=== PATIENT | female | born 2005 | race Caucasian/White ===

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

== ENCOUNTER → 2025-03-01 | Outpatient (CLI) | payer MEDICAID, SELFPAY ==
--- NOTE | 2025-03-01 13:22 | RAD_ITS ---
PROCEDURE: CHEST PA AND LATERAL 03/01/2025 REASON FOR EXAM: COUGH TECHNIQUE: Procedure Code: RADCXR Modality: DX Procedure: CHEST PA AND LATERAL COMPARISON: None FINDINGS: The heart mediastinum are normal. The lungs are clear. There is no focal consolidation or effusion. No pneumothorax. No soft tissue abnormality. Osseous structures are normal. RAD/Chest PA and Lateral IMPRESSION: Negative chest Reading Location: [id number]
--- OUTSIDE RECORDS SUMMARY | 2025-03-01 13:44 | XMS RPT_ITS | CCD ---
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 O92.79 Care and examination of lactating mother Z39.1 Time Spent (min) 30 03/21/24 1043 Date Anahy Schilling NP MACHINE SOLE LEVELER-C Alexigner Signature: Date (if applicable) CC: Normal [facility] Discharge Instructionon 11-0 Discharge Instruction [facility] Medical Records Department [address] [place] [address] Instructions for Home/Discharge Instructions 03/19/24 0837 MR#: [id number] Acct: [id number] Name: LIN ACEVEDO Rep #: [id number] : 2005 18 From: Dave Pyle DO PCP: Dr. Hermelinda Bauman MD Status:ADM IN Discharge Instructions Diet Discharge Diet: No restrictions Activity Discharge Activity: May Drive and May Shower May resume sexual activity in: 6 weeks (nothing in the vagina for 6 weeks) Ice area for (Minutes): 15 Weight Bearing Status: Weight bearing as tolerated Lifting Restrictions: nothing heavier than baby Additional Activity Instructions:: Check your blood pressure before taking the Procardia (blood pressure medication), and later in the day after you have taken the medication. Keep a log of your blood pressures. To come in this week for a blood pressure check. Call the office if your blood pressures are increasing and 150's/100's. Dressing / Incision Call your doctor if you observe: Fever of 101 or Higher, Inability to urinate, Using more than 1 pad per hour, Shortness of breath, Dizziness, Fainting spells, Swelling in the ankles, Chest pain, Increased palpitations (irregular heartbeat), Calf discomfort and Uncontrolled pain Cleanse incision/area with: Soap Water Follow Up Care Please Follow Up With: Lorena Bassett CNM When: 1 week for early visit and blood pressure check 6 weeks for exam Test Results: Test results from this visit will be discussed in further detail at your follow-up appointment, if applicable. Discharge Plan Admission Admit Date/Time: 03/16/24 05:29 Primary Reason for Your Visit: Delivery Attending Provider: Day You Primary Care Provider: Hermelinda Bauman Instructions Patient Instructions: After a Vaginal Discharge Orders/Prescriptions Prescriptions: New nifedipine 30 mg Tablet Extended Release 24hr 30 mg PO DAILY Qty: 30 1RF Referrals / Follow Up: Hermelinda Bauman MD [Primary Care Provider] - Disposition Disposition (needs filled in before D/C Order can be placed): Home, Self Care 03/19/24 0838 Dave Pyle DO CC: Dr. Hermelinda Bamuan MD Signed Normal [facility] CBC W/Diff, Automatedon 11-0 Absolute Lymph 2.77 X10 3/uL Normal 0.83-4.51 [facility] Comment on above: Order Comment: SENT LABEL TO WP REMINDING THEM OF OUTSTANDING DRAW Comments: First day Performed By: #### L 100.0100 #### [facility] [address] [place], [address] Absolute Neut 8.7 X10 3/uL High 2.0-7.7 [facility] Comment on above: Order Comment: SENT LABEL TO WP REMINDING THEM OF OUTSTANDING DRAW Comments: First day Performed By: #### L 100.0100 #### [facility] [address] [place], [address] Basophils/100 WBC (Bld) 0.8 % Normal 0-1 [facility] Comment on above: Order Comment: SENT LABEL TO WP REMINDING THEM OF OUTSTANDING DRAW Comments: First day Performed By: #### L 100.0100 #### [facility] [address] [place], [address] Eosinophils/100 WBC (Bld) 3.0 % Normal 0-3 [facility] Comment on above: Order Comment: SENT LABEL TO WP REMINDING THEM OF OUTSTANDING DRAW Comments: First day Performed By: #### L 100.0100 #### [facility] [address] [place], [address] Erythrocyte distribution width (RBC) [Ratio] 12.6 % Normal 11.6-14.6 [facility] Comment on above: Order Comment: SENT LABEL TO WP REMINDING THEM OF OUTSTANDING DRAW Comments: First day Performed By: #### L 100.0100 #### [facility] [address] [place], [address] Hematocrit (Bld) [Volume fraction] 29.6 % Low 37-46 [facility] Comment on above: Order Comment: SENT LABEL TO WP REMINDING THEM OF OUTSTANDING DRAW Comments: First day Performed By: #### L 100.0100 #### [facility] [address] [place], [address] Hemoglobin (Bld) [Mass/Vol] 9.8 g/dL Low 12.0-15.0 [facility] Comment on above: Order Comment: SENT LABEL TO WP REMINDING THEM OF OUTSTANDING DRAW Comments: First day Performed By: #### L 100.0100 #### [facility] [address] [place], [address] IG% 3.100 High 0.0-0.9 [facility] Comment on above: Order Comment: SENT LABEL TO WP REMINDING THEM OF OUTSTANDING DRAW Comments: First day Result Comment: IG% - Immature Granulocytes (promyelocytes, myelocytes and metamyelocytes) > 1% indicates that a LEFT SHIFT is Present. Performed By: #### L 100.0100 #### [facility] [address] [place], [address] Lymphocytes/100 WBC (Bld) 20.8 % Low 25-45 [facility] Comment on above: Order Comment: SENT LABEL TO WP REMINDING THEM OF OUTSTANDING DRAW Comments: First day Performed By: #### L 100.0100 #### [facility] [address] [place], [address] MCH (RBC) [Entitic mass] 29.1 pg Normal 25.0-35.0 [facility] Comment on above: Order Comment: SENT LABEL TO WP REMINDING THEM OF OUTSTANDING DRAW Comments: First day Performed By: #### L 100.0100 #### [facility] [address] [place], [address] MCHC (RBC) [Mass/Vol] 33.1 g/dL Normal 32-36 [facility] Comment on above: Order Comment: SENT LABEL TO WP REMINDING THEM OF OUTSTANDING DRAW Comments: First day Performed By: #### L 100.0100 #### [facility] [address] [place], [address] MCV (RBC) [Entitic vol] 87.8 fL Normal 78-96 [facility] Comment on above: Order Comment: SENT LABEL TO WP REMINDING THEM OF OUTSTANDING DRAW Comments: First day Performed By: #### L 100.0100 #### [facility] [address] [place], [address] Monocytes/100 WBC (Bld) 6.7 % High 3-6 [facility] Comment on above: Order Comment: SENT LABEL TO WP REMINDING THEM OF OUTSTANDING DRAW Comments: First day Performed By: #### L 100.0100 #### [facility] [address] [place], [address] Neutrophils/100 WBC (Bld) 65.6 % High 34-64 [facility] Comment on above: Order Comment: SENT LABEL TO WP REMINDING THEM OF OUTSTANDING DRAW Comments: First day Performed By: #### L 100.0100 #### [facility] [address] [place], [address] Nucleated RBC (Bld) [#/Vol] 0 10*3/uL Normal 0-5 [facility] Comment on above: Order Comment: SENT LABEL TO WP REMINDING THEM OF OUTSTANDING DRAW Comments: First day Performed By: #### L 100.0100 #### [facility] [address] [place], [address] Platelet mean volume (Bld) [Entitic vol] 11.7 fL Normal 6.2-12.0 [facility] Comment on above: Order Comment: SENT LABEL TO WP REMINDING THEM OF OUTSTANDING DRAW Comments: First day Performed By: #### L 100.0100 #### [facility] [address] [place], [address] Platelets (Bld) [#/Vol] 153 10*3/uL Normal 150-450 [facility] Comment on above: Order Comment: SENT LABEL TO WP REMINDING THEM OF OUTSTANDING DRAW Comments: First day Performed By: #### L 100.0100 #### [facility] [address] [place], [address] RBC (Bld) [#/Vol] 3.37 10*6/uL Low 4.1-4.8 [facility] Comment on above: Order Comment: SENT LABEL TO WP REMINDING THEM OF OUTSTANDING DRAW Comments: First day Performed By: #### L 100.0100 #### [facility] [address] [place], [address] RDW SD 40.3 fl Normal 35.1-43.9 [facility] Comment on above: Order Comment: SENT LABEL TO WP REMINDING THEM OF OUTSTANDING DRAW Comments: First day Performed By: #### L 100.0100 #### [facility] [address] [place], [address] WBC (Bld) [#/Vol] 13.3 10*3/uL High 4.5-13.0 [facility] Comment on above: Order Comment: SENT LABEL TO WP REMINDING THEM OF OUTSTANDING DRAW Comments: First day Performed By: #### L 100.0100 #### [facility] [address] [place], [address] (ROM) Rupture Of Membraneson 03-16-2024 ROM Positive Abnormal Negative [facility] Comment on above: Result Comment: Amni otic fluid present indicates rupture of Membranes. RESULTS CALLED TO [facility] 03/16/24 0522 Raphael Manuel. REPORT READ BACK BY SAME. Performed By: #### L 205.1000 ####[facility] [address] [place], [address] CBC W/Diff, Automatedon Absolute Lymph 2.57 X10 3/uL Normal 0.83-4.51 [facility] Comment on above: Performed By: #### B TS, L100.0100 #### [facility] [address] [place], [address] Absolute Neut 13.1 X10 3/uL High 2.0-7.7 [facility] Comment on above: Performed By: #### B ASHA, L100.0100 #### [facility] [address] [place], [address] Basophils/100 WBC (Bld) 0.6 % Normal 0-1 [facility] Comment on above: Performed By: #### B ASHA, L100.0100 #### [facility] [address] [place], [address] Eosinophils/100 WBC (Bld) 2.1 % Normal 0-3 [facility] Comment on above: Performed By: #### B ASHA, L100.0100 #### [facility] [address] [place], [address] Erythrocyte distribution width (RBC) [Ratio] 12.1 % Normal 11.6-14.6 [facility] Comment on above: Performed By: #### Augusto BARRY, L100.0100 #### [facility] [address] [place], [address] Hematocrit (Bld) [Volume fraction] 35.3 % Low 37-46 [facility] Comment on above: Performed By: #### Augusto BARRY, L100.0100 #### [facility] [address] [place], [address] Hemoglobin (Bld) [Mass/Vol] 11.6 g/dL Low 12.0-15.0 [facility] Comment on above: Performed By: #### B ASHA, L100.0100 #### [facility] [address] [place], [address] IG% 3.400 High 0.0-0.9 [facility] Comment on above: Result Comment: IG% - Immature Granulocytes (promyelocytes, myelocytes and metamyelocytes) > 1% indicates that a LEFT SHIFT is Present. Performed By: #### Augusto BARRY, L100.0100 #### [facility] [address] [place], [address] Lymphocytes/100 WBC (Bld) 14.2 % Low 25-45 [facility] Comment on above: Performed By: #### Augusto BARRY, L100.0100 #### [facility] [address] [place], [address] MCH (RBC) [Entitic mass] 28.6 pg Normal 25.0-35.0 [facility] Comment on above: Performed By: #### Augusto BARRY, L100.0100 #### [facility] [address] [place], [address] MCHC (RBC) [Mass/Vol] 32.9 g/dL Normal 32-36 [facility] Comment on above: Performed By: #### Augusto BARRY, L100.0100 #### [facility] [address] [place], [address] MCV (RBC) [Entitic vol] 86.9 fL Normal 78-96 [facility] Comment on above: Performed By: #### Augusto BARRY, L100.0100 #### [facility] [address] [place], [address] Monocytes/100 WBC (Bld) 7.8 % High 3-6 [facility] Comment on above: Performed By: #### Augusto BARRY, L100.0100 #### [facility] [address] [place], [address] Neutrophils/100 WBC (Bld) 71.9 % High 34-64 [facility] Comment on above: Performed By: #### Augusto BRARY, L100.0100 #### [facility] [address] [place], [address] Nucleated RBC (Bld) [#/Vol] 0 10*3/uL Normal 0-5 [facility] Comment on above: Performed By: #### Augusto BARRY, L100.0100 #### [facility] [address] [place], [address] Platelet mean volume (Bld) [Entitic vol] 12.4 fL High 6.2-12.0 [facility] Comment on above: Performed By: #### Augusto BARRY, L100.0100 #### [facility] [address] [place], [address] Platelets (Bld) [#/Vol] 206 10*3/uL Normal 150-450 [facility] Comment on above: Performed By: #### Augusto BARRY, L100.0100 #### [facility] [address] [place], [address] RBC (Bld) [#/Vol] 4.06 10*6/uL Low 4.1-4.8 [facility] Comment on above: Performed By: #### Augusto BARRY, L100.0100 #### [facility] [address] [place], [address] RDW SD 38.5 fl Normal 35.1-43.9 [facility] Comment on above: Performed By: #### Augusto BARRY, L100.0100 #### [facility] [address] [place], [address] WBC (Bld) [#/Vol] 18.2 10*3/uL High 4.5-13.0 [facility] Comment on above: Performed By: #### Augusto BARRY, L100.0100 #### [facility] [address] [place], [address] H AND P Exam - OB/GYNon -0 H&P Exam - SPRING [employer]GER [facility] Medical Records Department [address] [address] H P Exam - SPRING [employer]GER 03/16/24 0642 MR#: [id number] Acct: [id number] Name: LIN ACEVEDO Rep #: [id number] : 2005 18 From: Day You CNM PCP: Dr. Hermelinda Bauman MD Status:ADM IN Location: [id number] HPI - General General Date of Admission: 03/16/24 HPI Narrative LIN ACEVEDO, is a 18 F G1 who presents with leaking fluid and cramping. Maternal Data Information ANNABEL Calculator Estimated Delivery Date Method Current WG Current Estimate 03/17/24 Manual 39w 6d PFSH PFSH Medical History Depression Allergy/AdvReac Type Severity Reaction Status Date / Time No Known Allergies Allergy Verified 03/16/24 04:56 Social History Smoking Status: Former smoker History Elective abortions Hx Para 0 Spontaneous abortions Hx # Term Pregnancies Ectopic pregnancies Hx # Pregnancies Multiple births # of living children NST FHR Rate Baby A Baseline: 140 Variability:: Moderate Accelerations:: 15 x 15 Decelerations:: None NST Reactive:: Yes FHR Category:: Category I Uterine Activity:: Irregular ROS Eyes Eyes: Denies blurry vision, change in vision or spots in vision ENT HEENT: Denies dizziness or headache(s) Cardiovascular Cardiovascular: Denies abdominal pain, chest pain or dyspnea Respiratory/Chest Respiratory/Chest: Denies cough, dyspnea, shortness of breath at rest or shortness of breath with exertion Gastrointestinal Gastrointestinal: Denies abdominal pain, diarrhea or vomiting Genitourinary Genitourinary: Denies change in urinary stream, difficulty urinating or dysuria Musculoskeletal Musculoskeletal: Reports none Integumentary Integumentary: Denies rash Neurologic Neurologic: Denies dizziness, headache(s), memory loss or weakness Psychiatric Psychiatric: Reports none Vital Signs Vital Signs Vital Signs: 03/16/24 04:45 03/16/24 04:45 03/16/24 04:45 Temperature Temperature Source Temporal Pulse Rate 91 Respiratory Rate Blood Pressure 137/86 H BP Systolic 137 BP Diastolic 86 03/16/24 04:45 03/16/24 04:45 03/16/24 06:33 Temperature 97.4 F L Temperature Source Pulse Rate Respiratory Rate 16 Blood Pressure 130/81 BP Systolic 130 BP Diastolic 81 03/16/24 06:33 Temperature Temperature Source Pulse Rate 86 Respiratory Rate Blood Pressure BP Systolic BP Diastolic Weight Weight: 195 lb 8.8 oz Body Mass Index (BMI) 35.7 Physical Exam Const alert, oriented x3 and no apparent distress General Appearance: cooperative Orientation / Consciousness: awake Exam Limitations: no limitations HEENT normocephalic Head and Scalp: normal to inspection Eyes General Eye: normal appearance of both eyes Neck full ROM and no lymphadenopathy Lymph Lymphatic: no lymphadenopathy noted Chest inspection of chest normal Resp normal respiratory effort, normal air movement and clear to auscultation bilaterally Effort and Inspection: able to speak in complete sentences and symmetric chest movement Cardio regular rate and regular rhythm GI normal to inspection, nondistended, normoactive bowel sounds Manual OB Exam: presentation cephalic Back/Spine normal ROM Extremity full ROM and no calf tenderness Skin no rashes or lesions noted General Skin Exam: no breakdown Neuro oriented x3 and CN's II-XII intact bilaterally Psych mental status grossly normal and thought process normal Labs Labs Labs: Blood Type O POSITIVE Antibody Screen NEGATIVE Hct 35.3 % (37-46) L Hgb 11.6 g/dL (12.0-15.0) L Syphilis Total Ab Pending Hepatitis C Antibody Pending GBS negative Assessment Plan (1) Spontaneous rupture of amniotic membranes: (2) 39 weeks gestation of : PLAN: Plan ROM plus positive CE /-2 Admit to labor and delivery Routine labs Ambulate and use birthing ball as needed Desires unmedicated labor If no change at next check patient is willing to discuss starting Pitocin Dr. Pyle notified of admission 03/16/24 0742 Cosigner Signature (if applicable): CC: CHRISS You; Dr. Hermelinda Bauman MD Signed Normal [facility] Hepatitis C Antibodyon 03-16 Hepatitis C AB Non-Reactive Normal Nonreactive [facility] Comment on above: Result Comment: Non Reactive: < 0.8 Equivocal: >/= 0.8 to < 1.0 Reactive: >/= 1.0 The CDC requires that a reactive/equivocal HCV antibody result be sent out for confirmation. HCV Quant by PCR testing. Performed By: #### L 3890.6300 #### [facility] [place], [address] L509.8000on 03-16-2024 Syphilis Abs Non-Reactive Normal [facility] Comment on above: Performed By: #### L 509.8000 #### [facility] [address] [place], [place], [address] MR/OB.VAGDELIon 03-16-2024 MR/OB.VAGDELI [facility] Medical Records Department [address] [place] [address] OB VAGINAL DELIVERY 03/16/24 2233 MR#: [id number] Acct: [id number] Name: LIN ACEVEDO Rep #: [id number] : 2005 18 From: Lorena Bassett CNM PCP: Dr. Hermelinda Bauman MD Status:ADM IN Location: [id number] Assessment Plan (1) Lactating mother: (2) First degree perineal laceration: (3) Vaginal delivery: Maternal Data Information ANNABEL Calculator Estimated Delivery Date Method Current WG Current Estimate 03/17/24 Manual 39w 6d Vaginal Delivery Maternal Presentation Maternal Presentation: Active Labor and Spontaneous Rupture of Membranes (Augmentation with pitocin) Vaginal Delivery Information Procedure Performed: Spontaneous Vaginal Delivery Date of Procedure: 03/16/24 Pre-Procedure Diagnosis: SROM, active labor Post-Procedure Diagnosis: , first degree perineal laceration Type of anesthesia: Epidural Estimated Blood Loss: 400 ml Time of Delivery: 22:12 Findings Description of procedure: Progressed to complete with urge to push. Epidural for pain management. of viable female over intact perineum. APGARS 8,9 respectively. Infant head delivered with body immediately forthcoming. Placed on maternal abdomen, strong cry. Mouth and nares suctioned for secretions. Pitocin started for active 3rd stage management. Cord doubly clamped and cut by FOB after pulsations ceased, delayed cord clamping. Placenta delivered intact via durham, 3 vessel cord intact. Perineum inspected and revealed first degree perineal laceration. Repaired with 3.0 vicryl rapide and epidural. Fundus firm and hemostasis achieved. EBL 400ml. Mom and baby stable, planning to breastfeed. Family bonding well. notified of delivery. Presentation: Vertex and FELISHA Amniotic Membrane Rupture Type: Spontaneous Amniotic Fluid Description: Clear Placental Delivery Description: Spontaneous Placenta Disposition: [facility] Cord Vessel Description: 3 Vessels Cord Entanglement: None Infant A Gender: Female (1 minute): 8 (5 minute): 9 Delayed Cord Clamping: Yes Post Vaginal Deli Medications given after delivery: IV Pitocin Episiotomy Description: None Laceration: Perineal Extension/lac and 1st degree Complication Complications: No 03/16/242236 Cosigner Signature (if applicable): CC: CHRISS You; CHRISS Bassett; Dr. Hermelinda Bauman MD Signed Normal [facility] Type AND Screenon 03-16-2024 ABO and Rh group Nom (Bld) Blood group O Rh(D) positive Normal [facility] Comment on above: Order Comment: Labor Performed By: #### B TS, L100.0100 #### [facility] [address] [place], [address] URINE OB DIP B/Oon Glucose Ql (U) Negative Neg mg/dL [facility] Interpretation and review of laboratory results Normal [facility] Protein.monoclonal (U) [Mass/Vol] Negative Neg mg/dL [facility] CNPNon 03-09-2024 CNPN Telephone (OBGYWM) LIN ACEVEDO ([id number]) 5 F Date Time Provider Department 03/09/24 DAY YOU OBPRIYANK During your visit today, we recorded the following information about you: Day You APRN.CNM 03/09/2024 4:20 PM Signed Please reach out to patient as she missed her appointment today and is currently 38.6 weeks gestation. MABEL Grullon Jennifer, RN 03/09/2024 4:25 PM Signed Left message for patient to call office to offer appointment. She rescheduled for 03/16 and she was last seen 02/19. SW has openings on Tuesday, 03/12. AMADEO Briceño Lindsey, RN 03/09/2024 4:35 PM Signed Patient called and appointment rescheduled for 03/12. Maria Dolores Ascencio RN Allergies As of Date: 03/09/2024 (No Known Allergies) Date Reviewed: 02/20/2024 Reviewed by: Davian Umaña MA - Fully Assessed Reason for Visit: Appointment [186] Prescriptions as of 03/09/2024 - 25-IRON AOF-ELJAL-RBC ORAL Take by mouth. Problem List As Of Date 03/09/2024 Noted Resolved Depressive disorder [F32.A] 04/02/2021 with care elsewhere in third*01/19/2024 Encounter for supervision of high risk pregnanc*01/19/2024 Polyhydramnios in third trimester [O40.3XX0] 01/27/2024 Encounter Status:Closed by MARIA DOLORES ASCENCIO on 03/09/24 Normal [facility] Examination level ultrasound on 02-24-2024 [facility] Radiology Study observation (narrative) [facility] ROUTINE, GROUP B ST REP PCRon 02-20-2024 ROUTINE, GROUP B STREP PCR GROUP B STREP PCR: Negative for Group B Streptococcus by PCR. Normal [facility] Comment on above: Performed By: #### G BPCR ####[facility] LAB[facility] [id number] [place] [address] [place] URINE OB DIP B/Oon 4 Glucose Ql (U) Negative Neg mg/dL [facility] Protein.monoclonal (U) [Mass/Vol] Negative Neg mg/dL [facility] URINE OB DIP B/Oon 4 Glucose Ql (U) Negative Neg mg/dL [facility] Interpretation and review of laboratory results Normal [facility] Protein.monoclonal (U) [Mass/Vol] Negative Neg mg/dL [facility] CNPNon 01-30-2024 CNPN Telephone (OBGYWM) LIN ACEVEDO ([id number]) 5 F Date Time Provider Department 01/30/24 ROSSANA FELIX OBPRIYANK During your visit today, we recorded the following information about you: Torrey Prince RN 01/30/2024 4:33 PM Signed Pt has new OB appt with DM on 02/01/24. Records received from Dr. Busch's office 01/30/24. Records need scanned in chart after review by DM. Placed records with chart prep for appt on 02/01/2024. Torrey Prince RN Allergies As of Date: 01/30/2024 (No Known Allergies) Date Reviewed: 01/24/2024 Reviewed by: Whitney Dejesus MD - Fully Assessed Prescriptions as of 01/30/2024 - 25-IRON WJI-OVEKO-GSI ORAL Take by mouth. Problem List As Of Date 01/30/2024 Noted Resolved Depressive disorder [F32.A] 04/02/2021 with care elsewhere in third*01/19/2024 Encounter for supervision of high risk pregnanc*01/19/2024 Polyhydramnios in third trimester [O40.3XX0] 01/27/2024 Encounter Status:Closed by TORREY PRINCE on 01/30/[address] [facility] Telephone (OBGYWM) LIN ACEVEDO ([id number]) 5 F Date Time Provider Department 01/30/24 ROSSANA FELIX OBGYWM During your visit today, we recorded the following information about you: Eliana Camarena RN 01/30/2024 12:00 PM Signed ----- Message from Rossana Story MD sent at 01/27/2024 4:42 PM EDT ----- Mild polyhydramnios- will need growth us in 4 weeks. Results reviewed. Please Place copy in OB chart Eliana Camarena RN 01/30/2024 12:01 PM Signed Patient did not read the Timeethart result not message. Left message for patient to call office. AMADEO Soto Lindsey, RN 01/30/2024 12:23 PM Signed Patient called and growth ultrasound scheduled. Maria Dolores Ascencio RN Allergies As of Date: 01/30/2024 (No Known Allergies) Date Reviewed: 01/24/2024 Reviewed by: Whitney Dejesus MD - Fully Assessed Reason for Visit: Results [95] Prescriptions as of 01/30/2024 - 25-IRON JFX-[id number]-YVK ORAL Take by mouth. Problem List As Of Date 01/30/2024 Noted Resolved Depressive disorder [F32.A] 04/02/2021 with care elsewhere in third*01/19/2024 Encounter for supervision of high risk pregnanc*01/19/2024 Polyhydramnios in third trimester [O40.3XX0] 01/27/2024 Encounter Status:Closed by MARIA DOLORES ASCENCIO on 01/30/24 Normal [facility] CBC panel Auto (Bld)on 01-26 Erythrocyte distribution width (RBC) [Ratio] 11.5 % Normal 11.5-15.0 [facility] Comment on above: Order Comment: Speci men Type: BLOOD SPECIMENOrdering Facility: [facility] Address: [address] [place], [place] [id number] Performed By: #### 5 8410-2 ####[facility] ELIER LIFEPOINT HEALTHKimberlee [id number] [place] [address] [place] Hematocrit (Bld) [Volume fraction] 36.5 % Normal 36.0-46.0 [facility] Comment on above: Order Comment: Speci men Type: BLOOD SPECIMENOrdering Facility: [facility] Address: [address] [place] [address] Performed By: #### 5 8410-2 ####[facility] PEDRO PABLOSALEMATA [id number] [place] [address] [place] Hemoglobin (Bld) [Mass/Vol] 12.3 g/dL Normal 11.5-15.5 [facility] Comment on above: Order Comment: Speci men Type: BLOOD SPECIMENOrdering Facility: [facility] Address: [address] [place] [address] Performed By: #### 5 8410-2 ####[facility]ITAL[facility] [id number] [place] [address] [place] MCH (RBC) [Entitic mass] 29.9 pg Normal 26.0-34.0 [facility] Comment on above: Order Comment: Speci men Type: BLOOD SPECIMENOrdering Facility: [facility] Address: [address] [place] [address] Performed By: #### 5 8410-2 ####[facility] ERA [id number] [address] [place] MCHC (RBC) [Mass/Vol] 33.7 g/dL Normal 30.5-36.0 [facility] Comment on above: Order Comment: Speci men Type: BLOOD SPECIMENOrdering Facility: [facility] Address: [address] [place] [address] Performed By: #### 5 8410-2 ####[facility]ITALNCS[facility] [id number] [address] [place] MCV (RBC) [Entitic vol] 88.6 fL Normal 80.0-100.0 [facility] Comment on above: Order Comment: Speci men Type: BLOOD SPECIMENOrdering Facility: [facility] Address: [address] [place] [address] Performed By: #### 5 8410-2 ####[facility] PEDRO PABLOMORENO [id number] [place] [address] [place] Nucleated RBC (Bld) [#/Vol] 10*3/uL Normal <0.01 [facility] Comment on above: Order Comment: Speci men Type: BLOOD SPECIMENOrdering Facility: [facility] Address: [address] [place] [address] Performed By: #### 5 8410-2 ####[facility] PEDRO PABLOSALEMATA [id number] [place] [address] [place] Platelet mean volume (Bld) [Entitic vol] 10.8 fL Normal 9.0-12.7 [facility] Comment on above: Order Comment: Speci men Type: BLOOD SPECIMENOrdering Facility: [facility] Address: [address] [place] [address] Performed By: #### 5 8410-2 ####[facility]OS[facility]ITALCHRISTAKimberlee [id number] [place] [address] [place] Platelets (Bld) [#/Vol] 210 10*3/uL Normal 150-400 [facility] Comment on above: Order Comment: Speci men Type: BLOOD SPECIMENOrdering Facility: [facility] Address: [address] [place] [address] Performed By: #### 5 8410-2 ####[facility] HOSPITALCHRISTALIA [id number] [place] [address] [place] RBC (Bld) [#/Vol] 4.12 10*6/uL Normal 3.90-5.20 [facility] Comment on above: Order Comment: Speci men Type: BLOOD SPECIMENOrdering Facility: [facility] Address: [address] [place] [address] Performed By: #### 5 8410-2 ####[facility] MEMORIALWNCLIA [id number] [place] [address] [place] WBC (Bld) [#/Vol] 16.36 10*3/uL High 3.70-11.00 [facility] Comment on above: Order Comment: Speci men Type: BLOOD SPECIMENOrdering Facility: [facility] Address: [facility] [place] [address] Performed By: #### 5 8410-2 ####[facility]OS[facility]ITALNCLIA [id number] [address] [place] CNPJudit 01-27-2024 CNPN Telephone (OBGYWM) LIN ACEVEDO ([id number]) 5 F Date Time Provider Department 01/27/24 ROSSANA FELIX OBGYWM During your visit today, we recorded the following information about you: Eliana Camarena RN 01/27/2024 4:48 PM Signed ----- Message from Rossana Story MD sent at 01/27/2024 4:42 PM EDT ----- Mild polyhydramnios- will need growth us in 4 weeks. Results reviewed. Please Place copy in OB chart Eliana Camarena RN 01/27/2024 4:50 PM Signed Please file u/s order. AMADEO Soto Deidre, MD 01/27/2024 4:58 PM Signed ordered Eliana Camarena RN 01/27/2024 5:01 PM Signed Result note mychart message sent. Will verify she views. Eliana Camarena RN Allergies As of Date: 01/27/2024 (No Known Allergies) Date Reviewed: 01/24/2024 Reviewed by: Whitney Dejesus MD - Fully Assessed Reason for Visit: Results [95] Primary Visit Diagnosis:Polyhydram nios in third trimester complication, single or unspecified fetus [O40.3XX0] Order(s):OBSTETRIC ULTRASOUND [facility] [[id number]] Order #: [id number]: 1 FUTURE Prescriptions as of 01/27/2024 - 25-IRON QLI-IWSPP-DWE ORAL Take by mouth. Problem List As Of Date 01/27/2024 Noted Resolved Depressive disorder [F32.A] 04/02/2021 with care elsewhere in third*01/19/2024 Encounter for supervision of high risk pregnanc*01/19/2024 Polyhydramnios in third trimester [O40.3XX0] 01/27/2024 Encounter Status:Closed by ROSSANA STORY on 01/27/24 Normal [facility] Examination level ultrasound on 01-27-2024 Indication Standard anatomic survey Transfer of care Impression REMOTE READ The patient is referred for a standard anatomic survey. - Single, live, intrauterine . - biometry is consistent with the established gestational age. - No malformations were visualized on standard anatomic survey, with some views suboptimal due to later gestational age. - The amniotic fluid volume is mild polyhydramnios. - The placenta is anterior, fundal. - Not all structural malformations can be detected by ultrasound examination. Recommendations Additional follow-up as clinically indicated. Maternal Assessment Height 157 cm Height (ft) 5 ft Height (in) 2 in Maternal assessment other: 1 Para 0 Method Transabdominal ultrasound examination. View: Suboptimal view: limited by late gestational age Martin . Number of fetuses: 1 Dating GA by prior assessment 32 w + 6 d ANNABEL by prior assessment: 03/17/2024 Ultrasound examination on: 01/27/2024 GA by U/S based upon: AC, BPD, Femur, HC GA by U/S 32 w + 4 d ANNABEL by U/S: 03/19/2024 Assigned: based on stated ANNABEL, selected on 01/27/2024 Assigned GA 32 w + 6 d Assigned ANNABEL: 03/17/2024 General Evaluation Cardiac activity present. FHR 155 bpm. movements: present. Presentation: cephalic Placenta: Placental site: anterior, fundal Umbilical cord: Cord vessels: 3 vessel cord Amniotic fluid: Amount of AF: mild polyhydramnios. MVP 7.5 cm. NOEL 24.1 cm. Q1 6.1 cm, Q2 5.1 cm, Q3 7.5 cm, Q4 5.5 cm Growth Overview Exam date GA BPD (mm) HC (mm) AC (mm) FL (mm) HL (mm) EFW (g) 01/27/2024 32w 6d 83.9 71% 297.6 33% 292.1 61% 60.6 24% 53.8 20% 2014 34% Biometry Standard BPD 83.9 mm 33w 5d 71% Hadlock OFD 102.7 mm 30w 2d 14% Nicolaides HC 297.6 mm 32w 1d 33% Lux AC 292.1 mm 33w 1d 61% Hadlock Femur 60.6 mm 31w 3d 24% Lux Humerus 53.8 mm 31w 2d 20% Lux EFW 2,015 g 32w 2d 34% Hadlock EFW (lb) 4 lb EFW (oz) 7 oz EFW by: Hadlock (HC-AC-FL) Extended [employer]drop[employer] Worker 4.7 mm Extremities / Bony Struc FL / HC 0.20 Other Structures FHR 155 bpm Anatomy Cranium: normal Lateral ventricles: normal Choroid plexus: normal Midline falx: normal Cavum septi pellucidi: normal Cerebellum: normal Cisterna magna: normal Head / Neck Vermis: Suboptimal but not required for a standard anatomy exam Neck: Normal but not required for a standard anatomy exam Nuchal fold: Suboptimal but not required for a standard anatomy exam Lips: normal Profile: Normal but not required for a standard anatomy exam Nose: Normal but not required for a standard anatomy exam Face Maxilla: Suboptimal but not required for a standard anatomy exam Mandible: Suboptimal but not required for a standard anatomy exam Orbits: Normal but not required for a standard anatomy exam Lens: Normal but not required for a standard anatomy exam 4-chamber view: normal RVOT view: normal LVOT view: normal 3-vessel view: normal 1-zfbafg-gnqnbok view: normal Heart / Thorax Situs: situs solitus (normal) Aortic arch view: suboptimal SVC: Normal but not required for a standard anatomy exam IVC: Normal but not required for a standard anatomy exam Cardiac axis: normal Rt lung: Normal but not required for a standard anatomy exam Lt lung: Normal but not required for a standard anatomy exam Diaphragm: Normal but not required for a standard anatomy exam Cord insertion: normal Stomach: normal Kidneys: normal Bladder: normal Genitals: normal Abdomen Abdom. wall: normal Cervical spine: normal Thoracic spine: normal Lumbar spine: normal Sacral spine: normal Arms: normal Legs: normal Rt upper arm: normal Rt forearm: normal Rt hand: normal Rt fingers: normal Lt upper arm: normal Lt forearm: normal Lt hand: normal Lt fingers: normal Rt upper leg: normal Rt lower leg: normal Rt foot: normal Lt upper leg: normal Lt lower leg: normal Lt foot: normal sex: female Wants to know sex: yes Maternal Structures Uterus / Cervix Uterus: Visualized Cervix: Not visualized Ovaries / Tubes / Adnexa Rt ovary: Not visualized Lt ovary: Not visualized Performed By: Maria Dolores Power, JENNA, RVT Read By: Alana Rose M.D. MATERNAL MEDICINE [facility] Radiology Study observation (narrative) [facility] GESTATIONAL GLUCOSE SCREEN, 1-HOUR, 50 GRAM, NON-FASTINGon 01-27-2024 Glucose [Mass/Vol] 114 mg/dL Normal 74-134 [facility] Comment on above: Order Comment: Speci men Type: BLOOD SPECIMENOrdering Facility: [facility] Address: [address] [place] [address] Result Comment: [facility] Congress of Obstetricians and Gynecologists (Dangelo/Coustan) guidelines state a gestational diabetes mellitus positive screen is made, in women not previously diagnosed with overt diabetes, when the 1 hr plasma glucose level is equal to or above 140 mg/dL. The [facility] [employer] and [facility] [place] recommends a 135 mg/dL cutoff. Performed By: #### G LTGST ####[facility] [id number] [place] [address] [place] Reagin and Treponema pallidu m IgG and IgM [Interp]on 01-27-2024 T. pallidum IgG+IgM IA Ql (S) Non-Reactive Normal Nonreactive [facility] Comment on above: Order Comment: Speci men Type: BLOOD SPECIMENOrdering Facility: [facility] Address: [address] [place] [address] Performed By: #### 7 3752-8 ####[facility] LABCLIA [id number] [place] [address] [place] Reagin+T pallidum IgG+IgM Se rPl-Impon 01-27-2024 Reagin and Treponema pallidum IgG and IgM [Interp] Cannot exclude recent Treponemal infection if specimen collected within 7-10 days after appearance of suspect lesions or 2-3 weeks after an exposure. Clinical correlation is required. Normal [facility] Comment on above: Order Comment: Speci men Type: BLOOD SPECIMENOrdering Facility: [facility] Address: [address] [place] [address] [place] [address] Performed By: #### 7 3752-8 ####[facility] LABCLIA [id number] [address] [place] [facility] 01-26-2024 CNPN Telephone (SPMOBA) LIN ACEVEDO ([id number]) 5 F Date Time Provider Department 01/26/24 [facility] During your visit today, we recorded the following information about you: Luigi Guallpa RN 01/26/2024 9:52 AM Signed 1st risk assessment form submitted 01/26/2024 32w5d today Allergies As of Date: 01/26/2024 (No Known Allergies) Date Reviewed: 01/24/2024 Reviewed by: Whitney Dejesus MD - Fully Assessed Reason for Visit: PRAF [4193] Prescriptions as of 01/26/2024 - 25-IRON DUX-ENDGV-IGG ORAL Take by mouth. Problem List As Of Date 01/26/2024 Noted Resolved Depressive disorder [F32.A] 04/02/2021 with care elsewhere in third*01/19/2024 Encounter for supervision of high risk pregnanc*01/19/2024 Encounter Status:Closed by LUIGI GUALLPA on 01/26/24 Normal [facility] CNPNon 01-19-2024 CNPN Telephone (OBGYWM) LIN ACEVEDO ([id number]) 5 F Date Time Provider Department 01/19/24 ROSSANA STORY ([facility]) OBGYWM During your visit today, we recorded the following information about you: Yael Titus RN 01/19/2024 3:48 PM Signed I did telephone PNOB. Patient is transferring from [facility]. She is 31w5d . She was seen only 3 times in their office -no ultrasound due to transportation issues. [facility]. New OB with Dr Dejesus 01/23. Do you want to order ultrasound in Dr Dejesus's absence? Please advise Rossana Felix MD 01/19/2024 4:57 PM Signed ordered Eliana Camarena RN 01/20/2024 8:44 AM Signed Left message for patient to call office. There was a cancellation on 01/26 at 10:30am. I did schedule this u/s to hold that spot for her d/t limited u/s availability. After that the next available u/s is one opening on 02/08, then jumps to 02/13. AMADEO Soto Trisha, RN 01/23/2024 4:14 PM Signed Left message for patient to call office. She does have NOB scheduled for tomorrow. Eliana Camarena RN Allergies As of Date: 01/19/2024 (No Known Allergies) Date Reviewed: 04/02/2021 Reviewed by: Hermelinda Bauman MD - Fully Assessed Reason for Visit: [587] Primary Visit Diagnosis:Insufficie nt care in third trimester [O09.33] Order(s):OBSTETRIC ULTRASOUND [facility] [[id number]] Order #: [id number]: 1 FUTURE Prescriptions as of 01/24/2024 - 25-IRON GJY-FPBRK-INL ORAL Take by mouth. Problem List As Of Date 01/19/2024 Noted Resolved Depressive disorder [F32.A] 04/02/2021 with care elsewhere in third*01/19/2024 Encounter for supervision of high risk pregnanc*01/19/2024 Encounter Status:Closed by ELIANA CAMARENA on 01/24/[address] LIN ACEVEDO ([id number]) 5 F Date Time Provider Department 01/19/24 EDVIN MCCLELLAND During your visit today, we recorded the following information about you: Yael Titus RN 01/19/2024 10:09 AM Signed Left message for patient to return phone call for nurse intake questions Patient has an appointment with Edvin Mcclelland this afternoon. Please transfer to ma or Nivia Caro Allergies As of Date: 01/19/2024 (No Known Allergies) Date Reviewed: 04/02/2021 Reviewed by: Hermelinda Bauman MD - Fully Assessed Reason for Visit: Appointment [186] Prescriptions as of 01/19/2024 - 25-IRON UAL-FBOHN-XFZ ORAL Take by mouth. - escitalopram oxalate (LEXAPRO) 10 mg tablet Take 1.5 tablets by mouth once daily. - ENSKYCE 0.15-0.03 mg per tablet - hydrOXYzine pamoate (VISTARIL) 50 mg capsule Take 1 capsule by mouth four times daily as needed (agitation). - NYSTATIN 100,000 UNIT/G TOPICAL CREAM Use as directed. - MUPIROCIN 2 % OINTMENT Apply to affected area(s) three(3) times daily. Problem List As Of Date 01/19/2024 Noted Resolved Depressive disorder [F32.A] 04/02/20[facility]01/19/2024 Encounter for supervision of high risk pregnanc*01/19/2024 Encounter Status:Closed by ELIANA CAMARENA on 01/19/24 Normal [facility] C. trachomatis+N. gonorrhoea e DNA CRISTIAN+probe Ql (Unsp spec)on 11-23-2023 C. trachomatis rRNA CRISTIAN+probe Ql (Unsp spec) Negative Negative for Chlamydia trachomatis by amplificaton [facility] N. gonorrhoeae rRNA CRISTIAN+probe Ql (Unsp spec) Negative Negative for Neisseria gonorrhoeae by amplification [facility] CBC panel Auto (Bld)Ordered By: Maria Dolores Ascencio on 11-23-2023 Hematocrit (Bld) [Volume fraction] 37.1 % 36.0 - 46.0 % [facility] Hemoglobin (Bld) [Mass/Vol] 12.4 g/dL 11.5 - 15.5 g/dL [facility] Platelets (Bld) [#/Vol] 213 10*3/uL k/uL [facility] HEPATITIS B SURFACE ANTIGENo n 11-23-2023 HBV surface Ag Ql (S) Non-Reactive [facility] HIV 1+2 Ab IA Qlon HIV 1+2 Ab+HIV1 p24 Ag IA Ql Non-Reactive [facility] No Panel InformationOrdered By: Maria Dolores Ascencio on 11-23-2023 [facility] RPR SCREENon 11-23-2023 Reagin Ab RPR Ql (S) Non-Reactive Nonreactive C [facility] RUBELLA IGG ANTIBODYon 11-22 Rubella IgG, Qual Positive Positive [facility] TYPE + SCREEN (EXTERNAL LAB) on 11-23-2023 ABO[facility]RH(D) ([facility]NAL[id number]-17-2023 ABO and Rh group Nom (Bld) Blood group O Rh(D) positive Normal [facility] Comment on above: Performed By: #### L 700.6800, B882-1 #### [facility] [address] [place], [address] Emergency Department Summary on 09-17-2023 Emergency Department Summary [facility] Medical Records Department [address] [place] [address] Emergency Department Summary 09/17/23 MR#: [id number] Acct: [id number] Name: LIN ACEVEDO Rep #: [id number] : 2005 18 From: Davy Cuellar MD PCP: Dr. Hermelinda Bauman MD Status:REG ER Location: ED HPI HPI - Female History of Present Illness Chief Complaint: Vag Bleeding Detail of Chief Complaint: Vaginal bleeding Informant: patient Pain Pain: Positive for Pelvic Pain (Crampy); Negative for Vulvar Pain or Vaginal Pain Onset: Today Context: Sudden Onset Timing: Intermittent Quality: Positive for Cramping and Aching Current Severity: Mild Maximum Severity: Moderate Worsened by: - (Nothing) Relieved by: - (Nothing) Bleeding Issue: Positive for Passing clots Onset: Today Context: Sudden Onset Timing: Intermittent Current Severity: Heavy Maximum Severity: Heavy Associated Symptoms Associated Symptoms: Positive for Frequency and Missed Period; Negative for Dysuria, Urgency or Hematuria Test: Positive Sexually: Positive for Active P: 0 Ab: 0 Narrative Narrative: Patient is an 18-year-old woman who is sexually active. The did have an ultrasound within the past week that showed a single live intrauterine . She has not seen a utility worker driver. She denies orthostatic symptoms. She had some cramping. She had maybe some spotting. She took a shower and had passage of a clot. Clot was a sizable long finger. She states the cramping has improved. She does not know her blood type. She denies history of STI. She does have remote history of ovarian cyst. She denies history of endometriosis. She has no other complaints. Prior similar symptoms: No Recent Illness/Hospitalizat ion: No PFSH PFSH Medical History Depression Allergy/AdvReac Type Severity Reaction Status Date / Time No Known Allergies Allergy Verified 09/17/23 15:50 Social History Smoking Status: Never smoker ROS ROS ED Constitutional Constitutional ED: Denies chills, fever(s) or subjective Cardiovascular Cardiovascular: Denies chest pain or palpitations Respiratory/Chest Respiratory/Chest: Denies cough, dyspnea or dyspnea on exertion Gastrointestinal Gastrointestinal: Denies abdominal pain, nausea or vomiting Genitourinary Genitourinary ED: Reports urinary frequency; Denies dysuria or hematuria Integumentary Denies rash Neurologic Neurologic: Denies headache(s) Psychiatric Psychiatric: Reports anxiety Hematologic/Lymphati c Hematologic/Lymphati c: Denies easy bleeding or easy bruising EXAM Physical Exam Const Vital Signs: 09/17/23 15:50 09/17/23 17:49 Temperature 97.0 F L Temperature Source Temporal Pulse Rate 90 77 Respiratory Rate 16 16 Blood Pressure 123/91 H 128/86 H Blood Pressure Mean 101 100 Pulse Ox 99 98 Oxygen Delivery Method Room Air Room Air Positive well nourished and well developed General Appearance ED: well developed and NAD; Negative for odor of alcohol detected or pallor HEENT Reports moist mucous membranes HEENT Narrative: Head is atraumatic and normocephalic. Eyes PERRL and EOMs intact bilaterally General Eye ED: Negative for pale conjunctiva or scleral icterus Neck no lymphadenopathy, supple and no JVD Resp normal respiratory effort and clear to auscultation bilaterally Cardio regular rate, regular rhythm, S1 normal heart sound, no murmurs and no JVD GI normal to inspection, nondistended, normoactive bowel sounds, soft to palpation, non-tender, non- distended and no masses Auscultation: normoactive bowel sounds Narrative: External genitalia normal. There is old blood in the vaginal vault. The external os appears open. Bimanual exam reveals uterus to be 14 weeks size. Nurse was unable to appreciate heart tones. The external os is open to fingertip. Internal os is closed. Transabdominal ultrasound reveals a single live intrauterine . heart tones were noted. Estimated heart rate 1 40-1 50. Skull, torso and lower extremities were visualized as well. There is no evidence of a hematoma in the proximity of the placenta. Back/Spine no CVA tenderness Extremity normal to inspection and full ROM Neuro oriented x3 and CN's II-XII intact bilaterally Psych mental status grossly normal Skin no rashes or lesions noted and no wounds General Skin Exam: Negative for jaundice or pallor MDM MDM MDM Narrative Medical decision making narrative: Since patient does not know blood type ABO Rh was obtained. Patient has O+ blood. Transabdominal ultrasound was obtained and documented with the portion of the EMR. Patient was informed that she has a threatened miscarri (more content not included)... Normal [facility] ,Serum,hCG Quali.on 09-17-2023 HCG, SERUM QUAL Positive Abnormal [facility] Comment on above: Result Comment: PREG SEBASTIAN TEST is *POSITIVE* CRITICAL VALUE VERIFIED. CALLED TO SHAYY ORTIZ 09/17/23 2318 James Jackson. RESULTS READ BACK BY SAME . Performed By: #### L [id number], B882-1 #### [facility] [place], [address] Serum or plasma choriogonado tropin detectionOrdered By: Davy Cuellar on 09-17-2023 HCG ( test) Ql Negative [facility] Comment on above: TEST is *P OSITIVE*CRITICAL VALUE VERIFIED. CALLED TO SHAYY ORTIZ09/17/23 268Flavia Jackson.RESULTS READ BACK BY DENICE . Jami 07-09-2021 ANA CRISTINA Telephone ([employer]) LIN ACEVEDO ([id number]) 5 F Date Time Provider Department 07/09/21 HERMELINDA BAUMAN During your visit today, we recorded the following information about you: Jaida Guevara RN 07/09/2021 11:44 AM Signed Shanae calling needs letter for social security to obtain card. Must be signed in ink and dated in ink. Please call dad when ready. Joanie Rod RN 07/09/2021 2:04 PM Signed Father notified, filed in medical records Joanie Rod RN Allergies As of Date: 07/09/2021 (No Known Allergies) Date Reviewed: 04/02/2021 Reviewed by: Hermelinda Bauman MD - Fully Assessed Reason for Visit: Letter [264] Prescriptions as of 07/09/2021 - escitalopram oxalate (LEXAPRO) 10 mg tablet Take 1.5 tablets by mouth once daily. - ENSKYCE 0.15-0.03 mg per tablet - hydrOXYzine pamoate (VISTARIL) 50 mg capsule Take 1 capsule by mouth four times daily as needed (agitation). Problem List As Of Date 07/09/2021 Noted Resolved Depressive disorder [F32.A] 04/02/2021 Letter Text Encounter Status:Closed by JOANIE ROD RN on 07/09/21 [facility] CNOVon 04-02-2021 CNOV Office Visit (PEDSWS) LIN ACEVEDO ([id number]) 5 F Date Time Provider Department 04/02/21 1:00 PM HERMELINDA BAUMAN During your visit today, we recorded the following information about you: Temperature Pulse Respiration Blood pressure 98 degrees 84/minute 20/minute 110/60 Weight Height Last Period 68.5 kg 1.575 m 02/23/21 Hermelinda Bauman MD 04/02/2021 5:00 PM Signed SUBJECTIVE: Lin Acevedo is an 15 year old female who presents for followup of of depression and anxiety treatment. She has been taking 10mg Lexapro for the past 2 months. Current symptoms include depressed mood and anxious feelings. She denies suicidal ideation or passive thoughts about . Symptoms have occurred daily. Her appetite is good. She states she is sleeping well. School is going well. Her PHQ-9 today is 5 which is an improvement from her last visit when it was 21. Patient is doing counseling with [employer] at school once a week. She had some manic type symptoms reported at the last visit but she thinks those are now under control. She is taking the hydroxyzine as needed and will use it about 4 times a week. Social History Tobacco Use - Smoking status: Never Smoker - Smokeless tobacco: Current User - Tobacco comment: vape intermittently Substance Use Topics - Alcohol use: No - Drug use: Not on file Negative except for as listed above OBJECTIVE: BP 110/60 Pulse 84 Temp 36.7 ?C (98 ?F) (Temporal Artery) Resp 20 Ht 157.5 cm (5' 2") Wt 68.5 kg (151 lb) LMP 02/23/2021 BMI 27.62 kg/m? EXAM: APPEARANCE Well appearing, alert, in no acute distress, well-hydrated, well nourished. PSYCH: Posture and motor behavior: normal posture and motor behavior Dress, grooming, personal hygiene: normal dress and grooming Facial expression: good eye contact Speech: normal speech Mood: euthymic Coherency and relevance of thought: normal thought processes Memory: normal memory ASSESSMENT/PLAN: Depression and Anxiety improved Per orders. Will increase Lexapro from 10 to 15mg daily. Psychotherapy recommended: Yes. Return visit in 1 month(s) for recheck since dose has changed. Patient Education: Reviewed concept of depression and anxiety as biochemical imbalance of neurotransmitters and rationale for treatment. Instructed patient to contact office or [id number] after-hours promptly should condition worsen or any new symptoms appear. MD Hermelinda Nguyen MD 04/02/2021 5:00 PM Signed YOU SHOULD SEEK MEDICAL ATTENTION IMMEDIATELY FOR YOUR CHILD, AT THE NEAREST EMERGENCY DEPARTMENT OR BY CALLING 911, IF ANY OF THE FOLLOWING OCCURS: ? Your child has new or worsening thoughts of harming him/herself (suicidal thoughts) or harming others. ? Your child does not feel safe at home. ? You are concerned about your child?s ability to remain safe at home. If your child has thoughts of hurting herself/himself, you can: ? Call the National Suicide Hotline number at 1-604-NDOTTKL ( ) or 1-909-731-TALK (1494) www.suicidepreventio nlifeline.org ? Text 4hwsd to 304298 ? Call the crisis hotline for: ? [facility]: Mobile Crisis/Frontline Services at 733-816-5787 ? [facility]: [place] at ? [facility] Crisis Hotline at 024-453-2732. ? [facility]: Crisis Emergency Services at ? [facility]: Alternative Paths at 607-072-2006 ? [facility]: Mental Health and Recovery Board at 473-747-2017 or 853-425-7290 ? [facility]: [facility] at 048-753-2870 ? [facility]: Mental Health Crisis Services at 877-342-1350 or ? Self-injury: 7-895-FEGYECBN ( ) Where should I go for CARE? [email or web address]/ where to go PRIMARY CARE -Contact your Primary Care Provider (PCP) if you have any new health concerns. They know your health history best. -Unless you are experiencing a life-threatening emergency, contact your primary care provider first. ? Most offices offer same day appointments ? See your PCP for wellness visits, sports physicals, to monitor chronic health conditions and for acute issues that do not require an emergency department visit. ? Keep any regular appointments that your PCP recommends. EXPRESS CARE ONLINE (Patients ages 2 years and up) See a provider live within minutes from the comfort of your home (or work) using your smartphone, tablet or laptop. ? Allergies (seasonal) ? Asthma (adults only) ? Back strains and sprains (adults only) ? Bronchitis (adults only) ? Conjunctivitis (pink eye) ? Cold, cough AND flu symptoms ? Minor manuel or cuts ? Painful urination and urinary tract infections (adults only) ? Rashes ? Sinus infections ? Upper respiratory illness ? Vaginal symptoms (itching, discharge) ? Minor injuries -Low-cost, [id number]-[id number] option (more content not included)... Normal [facility] Jami 03-03-2021 [place] Telephone (PEDSWS) LIN ACEVEDO ([id number]) 5 F Date Time Provider Department 03/03/21 GINGER HINSON During your visit today, we recorded the following information about you: Julienne Lieberman LPN 03/03/2021 5:30 PM Signed Type of form: Work Permit Form received via walk in When form is completed, call parent Form has been forwarded to SABINO Sharif LPN, PA-C 03/04/2021 8:07 AM Signed Form signed. SABINO Sharif RN 03/04/2021 9:44 AM Signed Message left for parent to return call. Would family prefer to picker / packer or fax somewhere? Trudy Henderson RN 03/04/2021 10:36 AM Signed Work permit placed in medical records dept for picker / packer. Trudy Henderson RN Allergies As of Date: 03/03/2021 (No Known Allergies) Date Reviewed: 02/05/2021 Reviewed by: Jewels Barrera Ma - Fully Assessed Reason for Visit: Work permit [Other] Prescriptions as of 03/04/2021 - hydrOXYzine pamoate (VISTARIL) 50 mg capsule Take 1 capsule by mouth four times daily as needed (agitation). Problem List As Of Date: 03/03/2021 (None) Encounter Status:Closed by TRUDY HENDERSON RN on 03/04/21 [facility] CNOVon 02-05-2021 CNOV Office Visit (PEDSWS) LIN ACEVEDO ([id number]) 5 F Date Time Provider Department 02/05/21 11:00 AM HERMELINDA BAUMAN During your visit today, we recorded the following information about you: Temperature Pulse Respiration Blood pressure 98.2 degrees 68/minute 16/minute 108/54 Weight Height Last Period 71.7 kg 1.51 m 12/28/20 Hermelinda Bauman MD 02/06/2021 3:04 PM Signed SUBJECTIVE: iLn Acevedo is an 15 year old female who presents for initiation of of depression and anxiety treatment. Onset of recent symptoms approximately 2 year(s) ago, gradually worsening since that time. Within the past 2 weeks she is getting rapidly worsening feelings. Current symptoms include depressed mood, anxious feelings, anhedonia, weight loss, change in appetite, insomnia, psychomotor agitation, fatigue, feelings of worthlessness/guilt, difficulty concentrating, hopelessness and suicidal thoughts with specific plan. She has thought about shooting herself in the head (she doesn't have immediate access to guns but thinks she could find one) or getting hit by a car. She has not had a past attempt. There are times that she doesn't feel safe with herself but not all the time. Symptoms have occurred daily. Rates overall mood 2 on scale of 1-10. Past history of negative history of depression, anxiety, OCD, eating disorder or suicide attempts. Previous treatment modalities: ER visit, counseling. Depression risk factors: negative life event - school stress, peer problems, betrayed in a relationship, some stress at home (tries to go to grandmothers). Got into a verbal argument with father's girlfriend. Patient denies feeling unsafe in her house. Patient is having a lot of highs and lows. She has issues sleeping at night but is tired during the day. She is not enjoying things anymore. Her counselor is concerned that she is manic. Father thinks she is more sad than happy. Patient states the counselor thinks she is having manic episodes and may have Bipolar Disorder. Patient admits to having days at a time where she doesn't sleep, even with melatonin. There is a family history with Depression and Anxiety. Patient's cousin is Bipolar. The school had her get evaluated at the hospital last year. Patient was suicidal that day and was scared to be by herself. After this she was discharged from the ER but put in counseling. Patient has been going to her current counselor for a couple months. She was seeing another counselor for about a year. She goes to [employer] through the school. Social History Tobacco Use - Smoking status: Never Smoker - Smokeless tobacco: Current User - Tobacco comment: vape intermittently Substance Use Topics - Alcohol use: No - Drug use: Not on file Negative except for as listed above OBJECTIVE: BP 108/54 Pulse 68 Temp 36.8 ?C (98.2 ?F) (Temporal) Resp 16 Ht 151 cm (4' 11.45") Wt 71.7 kg (158 lb) LMP 12/28/2020 BMI 31.43 kg/m? PHQ-9 = 21 LUCY-7 = 15 EXAM: APPEARANCE Well appearing, alert, in no acute distress, well-hydrated, well nourished. PSYCH: Posture and motor behavior: normal posture and motor behavior Dress, grooming, personal hygiene: normal dress and grooming Facial expression: good eye contact Speech: normal speech Mood: euthymic Coherency and relevance of thought: normal thought processes Memory: normal memory ASSESSMENT/PLAN: Depressed mood with manic behaviors new diagnosis Per orders. Will refer to psychiatry for discussion of medications. Psychotherapy recommended: Yes. Continue counseling. Return visit in 1 month(s). Patient Education: Reviewed concept of mood disorders as biochemical imbalance of neurotransmitters and rationale for treatment. Instructed patient to contact office or [id number] after-hours promptly should condition worsen or any new symptoms appear. Hermelinda Bauman MD Referring Provider: SELF [200] Allergies As of Date: 02/05/2021 (No Known Allergies) Date Reviewed: 02/05/2021 Reviewed by: Jewels Barrera Ma - Fully Assessed Reason for Visit: Depression [32] Primary Visit Diagnosis:Depressed mood [R45.89] Other Visit Diagnosis:Manic behavior (HCC) [F30.10] Order(s):CONSULT TO PSYCHIATRY [9035] Order #: [id number]: 1 FUTURE hydrOXYzine pamoate (VISTARIL) 50 mg capsuleTake 1 capsule by mouth four times daily as needed (agitation).Disp: 90 capsuleRfl: 0 Prescriptions as of 02/06/2021 - hydrOXYzine pamoate (VISTARIL) 50 mg capsule Take 1 capsule by mouth four times daily as needed (agitation). Problem List As Of Date: 02/05/2021 (None) Prescriptions ordered this encounter Disp Refills Start End HYDROXYZINE PAMOATE 50 MG CAPSULE 90 c* 0 02/05/2021 Route: ORAL Sig: Take 1 capsule by mouth four times daily as needed (agitation). Follow-up and Disposition History Recorded (more content not included)... Normal [facility] CNOVon 12-18-2020 CNOV Office Visit (PEDSWS) LIN ACEVEDO ([id number]) 5 F Date Time Provider Department 12/18/20 10:30 AM HERMELINDA BAUMAN During your visit today, we recorded the following information about you: Temperature Pulse Respiration Blood pressure 97.9 degrees 80/minute 18/minute 110/62 Weight Height Last Period 67.6 kg 1.581 m 12/13/20 Hermelinda Bauman MD 12/18/2020 3:41 PM Signed WELL VISIT PEDIATRIC FEMALE 14-17 YRS OLD SERVICE DATE: 12/18/2020 Lin is a 15 year old female who presents today for well exam accompanied by her father. SUBJECTIVE CONCERNS: right ear bubbling noise, not itchy or painful. Going on for 4 days. Can't fall asleep because of the sensation. May need drug screen for work, has to check if it will be done at work. HISTORY There is no problem list on file for this patient. PAST MEDICAL HISTORY Diagnosis Date - Menstrual cycle disorder 01/2018 - NEGATIVE MEDICAL HISTORY 06/23/2017 Normal Color [facility] PAST SURGICAL HISTORY Procedure Laterality Date - NONE ALLERGIES No Known Allergies Medications: No prescriptions on file. History reviewed. No pertinent family history. Social History Social History Narrative Not on file Smoking Exposure: Does your child spend a significant amount of time in the care of anyone who smokes? Yes -Who uses tobacco products? self -Are you interesting in quitting? No School: Grade: 9th; grades C-D. Physical Activity: less than 1 hour of physical activity per day Screen Time totaling less than 2 hours of screen time per day. Safety: Reviewed seat belts, bike helmets and smoke detectors Diet: -Eats 1 meals per day and 3 snacks per day -Typical beverages include water -Fruits and vegetables are eaten as snacks -# of fast food meals/week: 0 -# of days/week that family has dinner together: 4 Elimination: no concerns, normal size and consistency Dental: dental care current Sleep: -cant fall asleep Gynecological history: LMP: 12/13/2020 Cycles are regular and last 5 days. Dysmenorrhea: severe Heavy periods: yes Substance use: vaping Sexual History: Attraction: both male and female Sexually Active: Yes Number of lifetime partners: 1 Contraception: none GC/C screen within the past year: No GC/C screen since most recent partner? No Change in normal vaginal discharge: No Body image: satisfactory Screening tools reviewed and discussed with patient/opjimq-LTL-O score 5 (recommended cut off score is 11), Social Determinants of Health and TB. Please see questionnaires and review flowsheets. REVIEW OF SYSTEMS GENERAL: No fevers EYES: No vision concerns ENT: No hearing concerns RESPIRATORY: Negative for cough, wheezing or respiratory distress CARDIOVASCULAR: Negative for chest pain, syncope, lightheadness or heart racing SKIN: Negative for lesions, rash, and itching ENDOCRINE: No growth concerns OBJECTIVE Physical Exam: BP 110/62 Pulse 80 Temp 36.6 ?C (97.9 ?F) (Temporal Artery) Resp 18 Ht 158.1 cm (5' 2.24") Wt 67.6 kg (149 lb 2 oz) LMP 12/13/2020 BMI 27.06 kg/m? Blood pressure percentiles are 59 % systolic and 38 % diastolic based on the 2017 AAP Clinical Practice Guideline. This reading is in the normal blood pressure range. 93 %ile (Z= 1.47) based on CDC (Girls, 2-20 Years) BMI-for-age based on BMI available as of 12/18/2020. Last BMI: Wt: 59.4 kg (131 lb) (84 %, Z= 0.99)* BMI: 27.13 kg/(m2) Last 4 Encounter Wt Readings: Date: Wt: 02/07/2019 59.4 kg (131 lb) (84 %, Z= 0.99)* 05/01/2018 52.9 kg (116 lb 9.6 oz) (77 %, Z= 0.74)* 06/23/2017 44 kg (97 lb) (61 %, Z= 0.28)* Last 4 Encounter Ht Readings: Date: Ht: 02/07/2019 148 cm (4' 10.27") (4 %, Z= -1.70)* 05/01/2018 147.3 cm (4' 10") (10 %, Z= -1.27)* 06/23/2017 147 cm (4' 9.87") (29 %, Z= -0.54)* General: Well developed, No acute distress Head: normocephalic Eyes: conjunctivae/corneas clear Ears: normal external ear and canal, tympanic membranes with normal landmarks Nose: no erythema or rhinorrhea Oropharynx: moist mucous membranes, no erythema or exudate Neck: Supple, no adenopathy Resp: lungs clear to auscultation Heart: RRR , Normal S1 and S2. , No murmurs Abdomen: Soft, nontender, nondistended, no palpable organomegaly or masses, normal bowel sounds Genitalia: deferred Extremities: No clubbing, cyanosis, or edema., No deformities or skin discoloration. Good capillary refill. Full range of motion. Neuro: No focal deficits or abnormal findings present Skin: no rashes, lesions or jaundice ASSESSMENT AND PLAN Encounter Diagnosis ICD-10-CM 1. Encounter for routine child health examination with abnormal findings Z00.121 2. Encounter for immunization Z23 HUMAN PAPILLOMAVIRUS 9-VALENT HPV IM 93 %ile (Z= 1.47) based on CDC (Girls, 2-20 Years) BMI-for-age based on BMI available as of 12/18/2020. (more content not included)... [facility] Vital Signs Date Time Vital Sign Value Performing Clinician Facility 12-27-2024 11:08-0400 Body temperature 97 [degF] Veto Manning APRN.CNP Work Phone: [facility] 12-27-2024 11:08-0400 Body weight 68.6 kg Veto Manning APRN.CNP Work Phone: [facility] 12-27-2024 11:08-0400 Diastolic blood pressure 81 mm[Hg] Veto Manning APRN.NURSING HOME MANAGER Work Phone: [facility] 12-27-2024 11:08-0400 Heart rate 99 /min Veto Manning APRN.NURSING HOME MANAGER Work Phone: [facility] 12-27-2024 11:08-0400 Respiratory rate 18 /min Veto Manning APRN.NURSING HOME MANAGER Work Phone: [facility] 12-27-2024 11:08-0400 SaO2% (BldA) [Mass fraction] 97 % Veto Manning APRN.NURSING HOME MANAGER Work Phone: [facility] 12-27-2024 11:08-0400 Systolic blood pressure 119 mm[Hg] Veto Manning APRN.NURSING HOME MANAGER Work Phone: [facility] 07-23-2024 14:59-0400 Body temperature 96.91 [degF] Krislyn Aberegg PA Work Phone: [facility] 07-23-2024 14:59-0400 Body weight 78 kg Krislyn Aberegg PA Work Phone: [facility] 07-23-2024 14:59-0400 Diastolic blood pressure 72 mm[Hg] Krislyn Aberegg PA Work Phone: [facility] 07-23-2024 14:59-0400 Heart rate 94 /min Krislyn Aberegg PA Work Phone: [facility] 07-23-2024 14:59-0400 Respiratory rate 16 /min Krislyn Aberegg PA Work Phone: [facility] 07-23-2024 14:59-0400 SaO2% (BldA) [Mass fraction] 98 % Krislyn Aberegg PA Work Phone: [facility] 07-23-2024 14:59-0400 Systolic blood pressure 124 mm[Hg] Krislyn Aberegg PA Work Phone: [facility] 03-12-2024 08:28-0400 Body weight 87.45 kg Dave Pyle MD Work Phone: [facility] 03-12-2024 08:28-0400 Diastolic blood pressure 84 mm[Hg] Dvae Pyle MD Work Phone: [facility] 03-12-2024 08:28-0400 Systolic blood pressure 122 mm[Hg] Dave Pyle MD Work Phone: [facility] 02-24-2024 14:30-0400 Diastolic blood pressure 72 mm[Hg] Ob Remote Work Phone: [facility] 02-24-2024 14:30-0400 Systolic blood pressure 120 mm[Hg] Ob Remote Work Phone: [facility] 02-20-2024 14:50-0400 Body weight 82.56 kg Rossana Story MD Work Phone: [facility] 02-20-2024 14:50-0400 Diastolic blood pressure 78 mm[Hg] Rossana Story MD Work Phone: [facility] 02-20-2024 14:50-0400 Systolic blood pressure 122 mm[Hg] Rossana Story MD Work Phone: [facility] 02-15-2024 15:45-0400 Body weight 82.46 kg Whitney Dejesus MD Work Phone: [facility] 02-15-2024 15:45-0400 Diastolic blood pressure 70 mm[Hg] Whitney Dejesus MD Work Phone: [facility] 02-15-2024 15:45-0400 Systolic blood pressure 120 mm[Hg] Whitney Dejesus MD Work Phone: [facility] 02-01-2024 10:16-0400 Body weight 78.47 kg Rossana Story MD Work Phone: [facility] 02-01-2024 10:16-0400 Diastolic blood pressure 60 mm[Hg] Rossana Story MD Work Phone: [facility] 02-01-2024 10:16-0400 Systolic blood pressure 120 mm[Hg] Rossana Story MD Work Phone: [facility] 01-27-2024 11:14-0400 Diastolic blood pressure 60 mm[Hg] Ob Remote Work Phone: [facility] 01-27-2024 11:14-0400 Systolic blood pressure 110 mm[Hg] Ob Remote Work Phone: [facility] 01-24-2024 14:36-0400 Body height 158.5 cm Whitney Dejesus MD Work Phone: [facility] 01-24-2024 14:36-0400 Body mass index (BMI) [Percentile] Per age and sex 94.63 % Whitney Dejesus MD Work Phone: [facility] 01-24-2024 14:36-0400 Body mass index (BMI) [Ratio] 30.33 kg/m2 Whitney Dejesus MD Work Phone: [facility] 01-24-2024 14:36-0400 Body weight 76.2 kg Whitney Dejesus MD Work Phone: [facility] 01-24-2024 14:36-0400 Diastolic blood pressure 64 mm[Hg] Whitney Dejesus MD Work Phone: [facility] 01-24-2024 14:36-0400 Systolic blood pressure 112 mm[Hg] Whitney Dejesus MD Work Phone: [facility] 09-17-2023 20:11-0400 Body temperature 97.4 [degF] [facility] 09-17-2023 20:11-0400 Diastolic blood pressure 65 mm[Hg] [facility] 09-17-2023 20:11-0400 Heart rate 78 /min [facility] 09-17-2023 20:11-0400 Respiratory rate 16 /min [facility] 09-17-2023 20:11-0400 SaO2% (BldA) [Mass fraction] 97 % [facility] 09-17-2023 20:11-0400 Systolic blood pressure 105 mm[Hg] [facility] 09-17-2023 15:50-0400 Body height 160.[address] [facility] 09-17-2023 15:50-0400 Body mass index (BMI) [Percentile] Per age and sex 68.1 % [facility] 09-17-2023 15:50-0400 Body mass index (BMI) [Ratio] 23 kg/m2 [facility] 09-17-2023 15:50-0400 Body weight 59.[address] [facility] Encounters Encounter Date Encounter Type Care Provider Facility Start: 12-27-2024 End: 12-27-2024 Subsequent hospital visit by physician Xr Counts Include [facility] Work Phone: Radiology Comment on above: SOB (shortness of br eath) [R06.02] Start: 12-27-2024 End: 12-27-2024 Patient encounter procedure Veto Manning APRN.CNP Work Phone: [facility] [place] Comment on above: SOB (shortness of br eath) (Primary Dx); Bronchitis Start: 12-27-2024 End: 12-27-2024 ambulatory VETO MANNING Facility:[facility] Start: 07-24-2024 End: 07-24-2024 Follow-up encounter Pablo Mitchell APRN.NURSING HOME MANAGER Work Phone: [facility] Start: 07-23-2024 End: 07-23-2024 ambulatory HERMELINDAEVON BAUMAN Facility:[facility] Start: 07-23-2024 End: 07-23-2024 Office outpatient new 30 minutes Xavier BEYER Work Phone: [facility] Comment on above: Sore throat (Primary Dx); URI, acute Start: 03-29-2024 ambulatory Hermelinda Pattiried Facili ty:[facility] Start: 03-20-2024 End: 03-20-2024 ambulatory Hermelinda Mitul Facility:[facility] Start: 03-16-2024 End: 03-19-2024 ambulatory Lorena Bassett BARON.CNM Work Phone: OB/Gynecology Comment on above: Ob Delivery Note Start: 03-16-2024 End: 03-19-2024 Evaluation and management of inpatient Hermelinda Bauman Facility:[facility] Start: 03-12-2024 End: 03-12-2024 ambulatory [facility] Facility:[facility] Start: 03-12-2024 End: 03-12-2024 Patient encounter procedure Dave Pyle MD Work Phone: OB/Gynecology Comment on above: Encounter for superv ision of high risk in third trimester, antepartum (Primary Dx); 39 weeks gestation of ; Polyhydramnios in third trimester complication, single or unspecified fetus Start: 03-09-2024 End: 03-09-2024 Telephone encounter Day You APRN.CNM Work Phone: OB/Gynecology Comment on above: Appointment Start: 03-06-2024 End: 03-06-2024 ambulatory Trudy Smith MA [facility] [place] Start: 03-06-2024 End: 03-06-2024 Patient encounter procedure Trudy Smith MA [facility] Comment on above: Population Health Na vigation Outreach (OB/peds) Start: 02-24-2024 End: 02-24-2024 ambulatory HERMELINDA GUTIÉRREZCLARIBEL Facility:[facility] Start: 02-24-2024 End: 02-24-2024 Patient encounter procedure Personal Carer [facility] Remote Work Phone: Maternal Medicine Comment on above: Encounter for ultras ound to check growth (Primary Dx); Polyhydramnios in third trimester complication, single or unspecified fetus; 36 weeks gestation of Start: 02-20-2024 End: 02-20-2024 ambulatory HERMELINDA GUTIÉRREZCLARIBEL Facility:[facility] Start: 02-20-2024 End: 02-20-2024 Patient encounter procedure Rossana Story MD Work Phone: OB/Gynecology Comment on above: Encounter for superv ision of high risk in third trimester, antepartum (Primary Dx); Polyhydramnios in third trimester complication, single or unspecified fetus; with care elsewhere in third trimester; Limited care in third trimester; 36 weeks gestation of Start: 02-15-2024 End: 02-15-2024 [facility] Start: 02-15-2024 End: 02-15-2024 Office outpatient visit 15 minutes Whitney Dejesus MD Work Phone: OB/Gynecology Comment on above: 35 weeks gestation o f (Primary Dx); Polyhydramnios in third trimester complication, single or unspecified fetus; Encounter for supervision of high risk in third trimester, antepartum; with care elsewhere in third trimester; Need for vaccination Start: 02-01-2024 End: 02-01-2024 [facility] Facility:[facility] Start: 02-01-2024 End: 02-01-2024 Patient encounter procedure Rossana Story MD Work Phone: OB/Gynecology Comment on above: Encounter for superv ision of high risk in third trimester, antepartum (Primary Dx); Polyhydramnios in third trimester complication, single or unspecified fetus; with care elsewhere in third trimester; Limited care in third trimester; 33 weeks gestation of ; Need for vaccination Start: 01-30-2024 End: 01-30-2024 Telephone encounter Rossana Story MD Work Phone: OB/Gynecology Comment on above: Results Start: 01-27-2024 End: 01-27-2024 Telephone encounter Rossana Story MD Work Phone: OB/Gynecology Comment on above: Results Start: 01-27-2024 End: 01-27-2024 [facility] Facility:[facility] Start: 01-27-2024 End: 01-27-2024 Patient encounter procedure Personal Carer [facility] [place] Remote Work Phone: Maternal Medicine Comment on above: Encounter for anatomic survey (Primary Dx); Insufficient care in third trimester; 32 weeks gestation of Start: 01-26-2024 End: 01-26-2024 Telephone encounter Luigi Guallpa RN Obstetrics/Gynecolog y Comment on above: PRAF Start: 01-24-2024 End: 01-24-2024 ambulatory HERMELINDA BAUMAN Facility:[facility] Start: 01-24-2024 End: 01-24-2024 Office outpatient visit 15 minutes Whitney Dejesus MD Work Phone: OB/Gynecology Comment on above: with prena lupillo care elsewhere in third trimester (Primary Dx); Encounter for supervision of high risk in third trimester, antepartum; Family history of factor V Leiden mutation Start: 01-19-2024 End: 01-24-2024 Telephone encounter Edvin Mcclelland APRN.NURSING HOME MANAGER Work Phone: OB/Gynecology Comment on above: Appointment Start: 09-17-2023 End: 09-17-2023 Emergency department patient visit [facility]gency Department Work Phone: Procedures Date Procedure Procedure Detail Performing Clinician Start: 12-27-2024 Radiologic exam ches t 2 views Veto Manning APRN.NURSING HOME MANAGER Work Phone: Start: 07-23-2024 STREP A MOLECULAR (POC) Xavier BEYER Work Phone: Start: 03-12-2024 Urnls dip stick/tabl et rgnt non-auto w/o micrscp Dave Pyle MD Work Phone: Start: 02-24-2024 Us preg uterus after 1st trimest 1/ gestation Rossana Story MD Work Phone: Start: 02-20-2024 Urnls dip stick/tabl et rgnt non-auto w/o micrscp Rossana Story MD Work Phone: Start: 02-15-2024 RSV VACCINE, BIVALEN T (ABRYSVO) Whitney Dejesus MD Work Phone: Start: 02-15-2024 Urnls dip stick/tabl et rgnt non-auto w/o micrscp Whitney Dejesus MD Work Phone: Start: 01-27-2024 Us preg uterus after 1st trimest 1/ gestation Rossana Story MD Work Phone: Start: 11-23-2023 Antibody screen Rossana Story MD Work Phone: Start: 11-23-2023 CBC panel - Blood by Automated count [facility] Provider Start: 11-23-2023 GONORRHEA/CHLAMYDIA NAAT [facility] Provider Start: 11-23-2023 HEP B SURF AG SCRN [facility] Provider Start: 11-23-2023 HIV 1 2 COMBO(AG/AB) ,WITH REFLEX TO DIFFERENTIATION [facility] Provider Start: 11-23-2023 RPR SCREEN [facility] Provid er Start: 11-23-2023 RUBELLA IGG AB [facility] Prov ider Start: 11-23-2023 TYPE + SCREEN (EXTERNAL LAB) [facility] Provider Plan of Treatment Date Care Activity Detail Author Start: 01-31-2034 Urine microalbumin profile DTaP,Tdap,Td Vaccine (8 - Td or Tdap) [facility] Start: 06-23-2027 Urine microalbumin profile DTaP,Tdap,Td Vaccine (7 - Td or Tdap) [facility] Start: 01-14-2025 Influenza vaccination Influenza Vacc ine (#1) [facility] Start: 11-22-2024 GC (Gonorrhea) Screening (18-24) GC (Gonorrhea) Screening (18-24) [facility] Start: 11-22-2024 Screening for Chlamy phu trachomatis Chlamydia Screening (18-24) [facility] Start: 03-16-2024 End: 03-16-2024 Patient encounter procedure 03/16/2024 1:15 PM EDT Routine Office Visit OB/Gynecology [address] [place] [id number] Lorena Bassett APRN.CNM [address] [place] [address] OB Routine OB/Gynecology Comment on above: OB Routine Start: 03-12-2024 End: 03-12-2024 Patient encounter procedure 03/12/2024 8:30 AM EDT Routine Office Visit OB/Gynecology [address] [place] [address] Dave Pyle MD [address] [place] [address] OB Routine OB/Gynecology Comment on above: OB Routine Start: 03-09-2024 End: 03-09-2024 Patient encounter procedure 03/09/2024 1:15 PM EDT Routine Office Visit OB/Gynecology [address] [place] [address] Day You APRN.[facility] [address] [place] [address] OB Routine OB/Gynecology Comment on above: OB Routine Start: 03-02-2024 End: 03-02-2024 Patient encounter procedure 03/02/2024 1:50 PM EDT Routine Office Visit OB/Gynecology [address] [place] [address] Whitney Dejesus MD [address] [place] [address] OB Routine OB/Gynecology Comment on above: OB Routine Start: 02-24-2024 End: 02-24-2024 Patient encounter procedure 02/24/2024 2:00 PM EDT Routine Office Visit Maternal Medicine [address] [place] [address] Growth Maternal Medicine Comment on above: Growth Start: 02-15-2024 End: 02-15-2024 Patient encounter procedure 02/15/2024 11:20 AM EDT Routine Office Visit OB/Gynecology [address] [place] [address] Whitney Dejesus MD [address] [place] [address] OB Routine OB/Gynecology Comment on above: OB Routine Start: 02-01-2024 End: 02-01-2024 Patient encounter procedure 02/01/2024 10:10 AM EDT Routine Office Visit OB/Gynecology [address] [place] [address] Rossana Felix MD [address] [place] [address] 1st ob OB/Gynecology Comment on above: 1st ob Start: 01-27-2024 End: 01-26-2025 OBSTETRIC ULTRASOUND WHI OBSTETRIC ULTRASOUND WHI Anc Imaging Routine Polyhydramnios in third trimester complication, single or unspecified fetus Expected: 01/27/2024, Expires: 01/26/2025 [facility] Work Phone: Comment on above: Expected: 01/27/2024 , Expires: 01/26/2025 Start: 01-27-2024 End: 01-27-2024 Patient encounter procedure 01/27/2024 10:30 AM EDT Routine Office Visit Maternal Medicine [address] [place] [address] Anatomy - late care Maternal Medicine Comment on above: Anatomy - late prena lupillo care Start: 01-24-2024 End: 01-24-2024 Patient encounter procedure 01/24/2024 2:40 PM EDT Initial Office Visit OB/Gynecology [address] [place] [address] Whitney Dejesus MD [address] [place] [address] NOB -LMP 06/18/23- Transfer from [facility] (she is going to have records faxed) OB/Gynecology Comment on above: NOB -LMP 06/18/23- Tra nsfer from [facility] (she is going to have records faxed) Start: 01-24-2024 End: 04-24-2024 CBC panel - Blood by Automated count COMPLETE BLOOD COUNT Lab Routine with care elsewhere in third trimester Expected: 01/24/2024, Expires: 04/24/2024 [facility] Work Phone: Comment on above: Expected: 01/24/2024 , Expires: 04/24/2024 Start: 01-24-2024 End: 04-24-2024 FACTOR V LEIDEN/PCR FACTOR V LEIDEN/PCR Lab Routine Family history of factor V Leiden mutation Expected: 01/24/2024, Expires: 04/24/2024 [facility] Comment on above: Expected: 01/24/2024 , Expires: 04/24/2024 Start: 01-24-2024 End: 04-24-2024 GESTATIONAL GLUCOSE SCREEN, 1-HOUR, 50 GRAM, NON-FASTING GESTATIONAL GLUCOSE SCREEN, 1-HOUR, 50 GRAM, NON-FASTING Lab Routine with care elsewhere in third trimester Expected: 01/24/2024, Expires: 04/24/2024 [facility] Comment on above: Expected: 01/24/2024 , Expires: 04/24/2024 Start: 01-24-2024 End: 04-24-2024 SYPHILIS TOTAL W/REFLEX SYPHILIS TOTAL W/REFLEX Lab Routine with care elsewhere in third trimester Expected: 01/24/2024, Expires: 04/24/2024 [facility] Comment on above: Expected: 01/24/2024 , Expires: 04/24/2024 Start: 01-21-2024 RSV Vaccine (1 - Ris k 1-dose series) RSV Vaccine (1 - Risk 1-dose series) [facility] Start: 01-19-2024 End: 01-18-2025 OBSTETRIC ULTRASOUND WHI OBSTETRIC ULTRASOUND WHI Anc Imaging Routine Insufficient care in third trimester Expected: 01/19/2024, Expires: 01/18/2025 [facility] Work Phone: Comment on above: Expected: 01/19/2024 , Expires: 01/18/2025 Start: 01-15-2024 Covid-19 Vaccine () Covid-19 Vaccine () [facility] Start: 01-15-2024 Covid-19 Vaccine () Covid-19 Vaccine ( season) [facility] Start: 01-15-2024 Influenza vaccination Influenza Vacc ine (#1) [facility] Start: 09-17-2023 [facility] Start: 2023 Anxiety Screening Anxiety Screening [facility] Start: 2023 GC (Gonorrhea) Screening (18-24) GC (Gonorrhea) Screening (18-24) [facility] Start: 2023 Hepatitis C screening Hepatitis C Sc reening [facility] Start: 2023 HIV screening HIV Screening [facility] Start: 2023 Screening for Chlamy phu trachomatis Chlamydia Screening () [facility] Start: 2021 Meningococcal B Vacc ine (1 of 2 - Standard) Meningococcal B Vaccine (1 of 2 - Standard) [facility] Start: 2021 Meningococcal B Vaccine: Consider Based On Risk (1 of 2 - Patient Seeks Protection) Meningococcal B Vaccine: Consider Based On Risk (1 of 2 - Patient Seeks Protection) [facility] Start: 2021 Meningococcal Conjug ate Vaccine (2 - 2-dose series) Meningococcal Conjugate Vaccine (2 - 2-dose series) [facility] Start: 2019 Peds To Adult Transition Annual Assessment Peds To Adult Transition Annual Assessment [facility] COVID & INFLUENZA A/ B & RSV PCR, ROUTINE COVID & INFLUENZA A/B & RSV PCR, ROUTINE Microbiology Routine URI, acute 07/23/2024 3:16 PM EDT [facility] Work Phone: Patient Education Miscarriage Th reatened [facility] Work Phone: Patient referral [facility] Work Phone: ROUTINE, GR OUP B STREP PCR ROUTINE, GROUP B STREP PCR Microbiology Routine 36 weeks gestation of 02/20/2024 3:04 PM EDT [facility] Work Phone: Immunizations Immunization Date Immunization Notes Care Provider Sadaf shahid 02-15-2024 respiratory syncytia l virus (RSV) vaccine, bivalent (ABRYSVO) Whitney Dejesus MD Work Phone: [facility] 02-01-2024 tetanus toxoid, redu ramses diphtheria toxoid, and acellular pertussis vaccine, adsorbed Rossana Story MD Work Phone: [facility] 12-18-2020 Human Papillomavirus 9-valent vaccine Edvin Mcclelland APRN.NURSING HOME MANAGER Work Phone: [facility] 06-23-2017 Human Papillomavirus 9-valent vaccine Edvin Mcclelland APRN.NURSING HOME MANAGER Work Phone: [facility] 06-23-2017 meningococcal polysaccharide (groups A, C, Y and W-135) diphtheria toxoid conjugate vaccine (MCV4P) Edvin Mcclelland APRN.NURSING HOME MANAGER Work Phone: [facility] 06-23-2017 tetanus toxoid, redu ramses diphtheria toxoid, and acellular pertussis vaccine, adsorbed Edvin Mcclelland APRN.NURSING HOME MANAGER Work Phone: [facility] 08-13-2010 diphtheria, tetanus toxoids and acellular pertussis vaccine Edvin Mcclelland APRN.NURSING HOME MANAGER Work Phone: [facility] 08-13-2010 measles, mumps and rubella virus vaccine Edvin Mcclelland APRN.NURSING HOME MANAGER Work Phone: [facility] 08-13-2010 poliovirus vaccine, inactivated Edvin Mcclelland APRN.NURSING HOME MANAGER Work Phone: [facility] 08-13-2010 varicella virus vaccine Jose bobby Mcclelland APRN.NURSING HOME MANAGER Work Phone: [facility] 10-24-2007 hepatitis A vaccine, pediatric/adolescent dosage, 2 dose schedule Edvin Mcclelland APRN.NURSING HOME MANAGER Work Phone: [facility] 11-30-2006 diphtheria, tetanus toxoids and acellular pertussis vaccine Edvin Mcclelland APRN.NURSING HOME MANAGER Work Phone: [facility] 11-30-2006 hepatitis A vaccine, pediatric/adolescent dosage, 2 dose schedule Edvin Mcclelland APRN.NURSING HOME MANAGER Work Phone: [facility] 08-26-2006 haemophilus influenz ae type b vaccine, HbOC conjugate Edvin Mcclelland APRN.NURSING HOME MANAGER Work Phone: [facility] 08-26-2006 hepatitis B vaccine, pediatric or pediatric/adolescent dosage Edvin Haury RN DERMATOLOGY.NURSING HOME MANAGER Work Phone: [facility] 08-26-2006 measles, mumps and rubella virus vaccine Edvin Haury RN DERMATOLOGY.NURSING HOME MANAGER Work Phone: [facility] 08-26-2006 pneumococcal conjuga te vaccine, 13 valent Edvin Haury RN DERMATOLOGY.NURSING HOME MANAGER Work Phone: [facility] 08-26-2006 poliovirus vaccine, inactivated Edvin Haury RN DERMATOLOGY.NURSING HOME MANAGER Work Phone: [facility] 08-26-2006 varicella virus vaccine Jose y Haury RN DERMATOLOGY.NURSING HOME MANAGER Work Phone: [facility] 02-22-2006 diphtheria, tetanus toxoids and acellular pertussis vaccine Edvin Haury RN DERMATOLOGY.NURSING HOME MANAGER Work Phone: [facility] 02-22-2006 pneumococcal conjuga te vaccine, 13 valent Edvin Haury RN DERMATOLOGY.NURSING HOME MANAGER Work Phone: [facility] 2005 diphtheria, tetanus toxoids and acellular pertussis vaccine, Haemophilus influenzae type b conjugate, and poliovirus vaccine, inactivated ([id number]) Edvin Haury RN DERMATOLOGY.NURSING HOME MANAGER Work Phone: [facility] 2005 hepatitis B vaccine, pediatric or pediatric/adolescent dosage Edvin Haury RN DERMATOLOGY.NURSING HOME MANAGER Work Phone: [facility] 2005 pneumococcal conjuga te vaccine, 13 valent Edvin Haury RN DERMATOLOGY.NURSING HOME MANAGER Work Phone: [facility] 2005 diphtheria, tetanus toxoids and acellular pertussis vaccine, Haemophilus influenzae type b conjugate, and poliovirus vaccine, inactivated ([id number]) Edvin Haury RN DERMATOLOGY.NURSING HOME MANAGER Work Phone: [facility] 2005 hepatitis B vaccine, pediatric or pediatric/adolescent dosage Edvin Haury RN DERMATOLOGY.NURSING HOME MANAGER Work Phone: [facility] 2005 pneumococcal conjuga te vaccine, 13 valent Edvin Haury RN DERMATOLOGY.NURSING HOME MANAGER Work Phone: [facility] 2005 hepatitis B vaccine, pediatric or pediatric/adolescent dosage Edvin Mcclelland APRN.CNP Work Phone: [facility] Payers Date Payer Category Payer Self-pay [id number] 2023 Medicaid [id number] 2023 Unknown [id number] Unknown [facility] COMMUNITY PLAN [id number] Unknown MMO/PR[employer]CIAL GRP [id number] Unknown [id number] Unknown [id number] Unknown [id number] Unknown [id number] Social History Date Type Detail Facility Start: 06-25-2023 [facility] Start: 09-17-2023 Tobacco smoking status [facility] Unknown if ever smoked [facility] Start: 2005 Sex Assigned At Female W [facility] Start: 01-19-2024 Tobacco smoking status MAIS Ex-smoker [facility] End: 07-15-2023 History of tobacco use Current smoker [facility] End: 07-15-2023 History of tobacco use Cigarette Smoker [facility] Start: 01-19-2024 Tobacco use and exposure Smokeless tobacco non-user [facility] Start: 01-19-2024 End: 12-27-2024 Alcoholic beverage intake Ex-drinker (finding) [facility] Start: 01-19-2024 End: 12-27-2024 History of Social function [facility] Start: 01-19-2024 End: 12-27-2024 Tobacco use panel [facility] The thought of harming myself has occurred to me Never [facility] Start: 04-16-2012 National Score (1-100), lower number is lower risk 54 [facility] Start: 01-19-2024 Education 13 [facility] Start: 12-18-2020 Tobacco Comment vape intermittently [facility] Start: 01-19-2024 [facility] Start: 01-03-2024 Gender identity Identifies as female gender (finding) [facility] Start: 12-18-2020 Tobacco smoking status NHIS Never smoked tobacco [facility] Start: 12-18-2020 Tobacco use and exposure User of smokeless tobacco [facility] Start: 04-02-2021 Alcoholic beverage intake Current non-drinker of alcohol (finding) [facility] Goals Date Patient Goal Desired Activity /State Personal health goal Clinical Notes 12-18-2020 to 12-27-2024 Veto Manning APRN.CNP - 12/27/2024 11:39 AM EDTDaBernarda altamirano Tech - 12/27/2024 11:30 AM EDTTelephone Encounter - Shari Godoy LPN - 07/24/2024 1:10 PM EDTPatient Instructions Note Date & Type Note Facility 12-27-2024 Note HNO ID: [id number] Author: VETO MANNING APRN.NURSING HOME MANAGER Service: ? Author Type: Nurse Practitioner Type: Progress Notes Filed: 12/27/2024 11:46 Note Text: [facility] [place] Subjective Lin Acevedo is a 19 year old female. Patient presents with: Cough: Chest congestion, Shortness of Breath, wheezing x2 days HPI Cough, Chest Congestion, and Dyspnea: - Onset 2 days ago. - Initially presented as facial congestion, which progressed to chest congestion. - Reports chest pain and significant dyspnea, making it difficult to perform daily activities, including caring for her 9-month-old daughter. - Describes difficulty catching her breath even when sitting. - Reports a "popping" sensation in the ear while blowing her nose, followed by dizziness and lightheadedness. - Mild odynophagia, primarily when coughing; denies severe throat pain. - Denies known history of asthma or other pulmonary conditions. - Smokes "a little bit." - Possibility of being ; has not missed a period but mentions a chance of . Review of Systems Ears/Nose/Mouth/Throat: (+) ear popping, (+) nasal congestion, (+) throat pain with swallowing Cardiovascular: (+) chest pain Respiratory: (+) cough, (+) chest congestion, (+) shortness of breath, (+) wheezing Neurological: (+) dizziness, (+) lightheadedness Objective BP 119/81 Pulse 99 Temp 36.1 ?C (97 ?F) Resp 18 Wt 68.6 kg (151 lb 3.8 oz) LMP 06/11/2023 (Exact Date) SpO2 97% Physical Exam General: No acute distress. HEENT: Tympanic membranes normal bilaterally, oropharynx without erythema or exudate. CV: Normal heart sounds. Resp: Wheezing and crackles bilaterally. { 1. SOB (shortness of breath) (R06.02) - Acute bronchitis with SOB, chest congestion, and wheezing for 2 days; chest X-ray clear, no evidence of pneumonia. - Start 9-day steroid taper. - Discussed potential ; advised home test prior to starting steroids due to potential risk. - Start albuterol inhaler. - Advised to return if symptoms worsen or do not improve within a week. and Recording using ambient [employer] software for draft documentation of the visit was discussed with the patient/authorized human resources representative; all questions welcomed and answered. Patient/authorized human resources representative agreed to proceed MDM Procedures [facility] 12-27-2024 History of Presen t illness Narrative [facility] [place] Subjective Lin Acevedo is a 19 year old female. Patient presents with: Cough: Chest congestion, Shortness of Breath, wheezing x2 days HPI Cough, Chest Congestion, and Dyspnea: - Onset 2 days ago. - Initially presented as facial congestion, which progressed to chest congestion. - Reports chest pain and significant dyspnea, making it difficult to perform daily activities, including caring for her 9-month-old daughter. - Describes difficulty catching her breath even when sitting. - Reports a "popping" sensation in the ear while blowing her nose, followed by dizziness and lightheadedness. - Mild odynophagia, primarily when coughing; denies severe throat pain. - Denies known history of asthma or other pulmonary conditions. - Smokes "a little bit." - Possibility of being ; has not missed a period but mentions a chance of . Review of Systems Ears/Nose/Mouth/Throat: (+) ear popping, (+) nasal congestion, (+) throat pain with swallowing Cardiovascular: (+) chest pain Respiratory: (+) cough, (+) chest congestion, (+) shortness of breath, (+) wheezing Neurological: (+) dizziness, (+) lightheadedness Objective BP 119/81 Pulse 99 Temp 36.1 C (97 F) Resp 18 Wt 68.6 kg (151 lb 3.8 oz) LMP 06/11/2023 (Exact Date) SpO2 97% Physical Exam General: No acute distress. HEENT: Tympanic membranes normal bilaterally, oropharynx without erythema or exudate. CV: Normal heart sounds. Resp: Wheezing and crackles bilaterally. { 1. SOB (shortness of breath) (R06.02) - Acute bronchitis with SOB, chest congestion, and wheezing for 2 days; chest X-ray clear, no evidence of pneumonia. - Start 9-day steroid taper. - Discussed potential ; advised home test prior to starting steroids due to potential risk. - Start albuterol inhaler. - Advised to return if symptoms worsen or do not improve within a week. and Recording using ambient [employer] software for draft documentation of the visit was discussed with the patient/authorized human resources representative; all questions welcomed and answered. Patient/authorized human resources representative agreed to proceed MDM Procedures documented in this encounter [facility] 12-27-2024 History of Presen t illness Narrative Radiology Service Progress Note PATIENT NAME: Lin Acevedo DATE OF SERVICE: December 27, 2024 TIME: 11:18 AM PATIENT IDENTITY VERIFICATION COMPLETED USING TWO (2) IDENTIFIERS: Name and Date of confirmed by patient verbally. FALL SCREENING: Has the patient had 2 falls in the last year or 1 fall with injury or currently using an Ambulatory Assistive Device (Walker, Cane, Wheelchair, Crutches, etc.)? No PATIENT GENDER DATA: Assigned female at . status: : No status: NO. PATIENT RELEVANT IMPLANT DATA REVIEWED: Not Applicable PATIENT PRESENTS WITH AN IMPLANTABLE OR ATTACHED DINING SERVICE WORKER: No RADIOLOGY DEPARTMENT: General X-ray: Exam(s) Completed: Chest X-Ray PERIPHERAL IV DATA: Not applicable SIGNED BY: Liliana Beckwith December 27, 2024 11:18 AM documented in this encounter [facility] 12-27-2024 Note HNO ID: [id number] Author: BERNARDA MCKEON Tech Service: ? Author Type: Job Service Consultant Type: Progress Notes Filed: 12/27/2024 11:27 Note Text: Radiology Service Progress Note PATIENT NAME: Lin Acevedo DATE OF SERVICE: December 27, 2024 TIME: 11:18 AM PATIENT IDENTITY VERIFICATION COMPLETED USING TWO (2) IDENTIFIERS: Name and Date of confirmed by patient verbally. FALL SCREENING: Has the patient had 2 falls in the last year or 1 fall with injury or currently using an Ambulatory Assistive Device (Walker, Cane, Wheelchair, Crutches, etc.)? No PATIENT GENDER DATA: Assigned female at . status: : No status: NO. PATIENT RELEVANT IMPLANT DATA REVIEWED: Not Applicable PATIENT PRESENTS WITH AN IMPLANTABLE OR ATTACHED DINING SERVICE WORKER: No RADIOLOGY DEPARTMENT: General X-ray: Exam(s) Completed: Chest X-Ray PERIPHERAL IV DATA: Not applicable SIGNED BY: Liliana Beckwith December 27, 2024 11:18 AM [facility] 07-24-2024 Telephone encounter Note Pt notified of results and provider message. Shari Godoy LPN [facility] 07-24-2024 Miscellaneous Notes Pt notified of results and provider message. Shari Godoy LPN Left message for patient to return call. Hermelinda Basurto MA Please notify that covid/flu/rsv testing negative. Continue with plan of care as discussed during visit. documented in this encounter [facility] 07-24-2024 Telephone encounter Note Left message for patient to return call. Hermelinda Basurto MA [facility] 07-24-2024 Telephone encounter Note Please notify that covid/flu/rsv testing negative. Continue with plan of care as discussed during visit. [facility] Work Phone: 07-23-2024 Note SARS-COV-2 (AGENT OF COVID-19) RNA: Not detected INFLUENZA A RNA: Not detected INFLUENZA B RNA: Not detected RESPIRATORY SYNCYTIAL VIRUS (RSV) RNA: Not detected [facility] Comment on above: Performed By: #### 9 [id number] ####[facility] LABCLIA [id number] [address] OF [facility] 07-23-2024 Note HNO ID: [id number] Author: XAVIER BANEGAS PA Service: ? Author Type: Physician Patient Support Partner Type: Progress Notes Filed: 07/23/2024 15:27 Note Text: [facility] Subjective Lin Acevedo is a 19 year old female. Patient presents with: Nasal Congestion: drainage, cough, headache x 1 week HPI 19-year-old female presents for cough, congestion, headache, sore throat x 4 to 5 days. Patient states she has been sick for the past couple of days. She has a dry cough, nasal congestion, sore throat. No fevers. Has had some chills. She denies any chest pain or shortness of breath. Her family is sick currently as well. She has not taken anything for symptoms. No other complaint PAST MEDICAL HISTORY Diagnosis Date Depression/anxiety Menstrual cycle disorder 01/2018 ?ovarian cyst NEGATIVE MEDICAL HISTORY 06/23/2017 Normal Color Vision PAST SURGICAL HISTORY Procedure Laterality Date NONE ALLERGIES Patient has no known allergies. MEDICATIONS 25-IRON [id number] ORAL Take by mouth. (Patient not taking: Reported on 07/23/2024) FAMILY HISTORY Problem Relation Age of Onset other (mva) Mother Factor 5 Leiden Father No Known Problems Brother Hypertension Maternal Grandmother Diabetes Maternal Grandfather sugar issues not diabetes yet. Factor 5 Leiden Paternal Grandmother Hypertension Paternal Grandmother No Known Problems Paternal Grandfather Social History Tobacco Use Smoking status: Former Current packs/day: 0.00 Types: Cigarettes Quit date: 07/15/2023 Years since quittin.0 Smokeless tobacco: Never Tobacco comments: vape intermittently Vaping Use Vaping status: Never Used Substance Use Topics Alcohol use: Not Currently Comment: rarely Drug use: Not Currently Types: Marijuana Comment: No use since 12/15/2023 Review of Systems Constitutional: Positive for chills. Negative for fever. HENT: Positive for congestion and sore throat. Negative for ear pain. Respiratory: Positive for cough. Negative for shortness of breath. Cardiovascular: Negative for chest pain. Gastrointestinal: Negative for diarrhea and vomiting. Objective BP 124/72 Pulse 94 Temp 36.1 ?C (96.9 ?F) Resp 16 Wt 78 kg (171 lb 15.3 oz) LMP 06/11/2023 (Exact Date) SpO2 98% Physical Exam Vitals and nursing note reviewed. Constitutional: General: She is not in acute distress. Appearance: Normal appearance. She is not toxic-appearing. HENT: Right Ear: Tympanic membrane and ear canal normal. Left Ear: Tympanic membrane and ear canal normal. Nose: Congestion present. Mouth/Throat: Mouth: Mucous membranes are moist. Pharynx: Uvula midline. Posterior oropharyngeal erythema present. Tonsils: 2+ on the right. 2+ on the left. Eyes: Conjunctiva/sclera: Conjunctivae normal. Cardiovascular: Rate and Rhythm: Normal rate and regular rhythm. Pulmonary: Effort: Pulmonary effort is normal. Breath sounds: Normal breath sounds. No wheezing, rhonchi or rales. Skin: General: Skin is warm and dry. Neurological: Mental Status: She is alert. ASSESSMENT/PLAN: 1. Sore throat - ICD9: 462, ICD10: J02.9 (primary diagnosis) - suspect viral - Group A strep molecular testing negative - Discussed supportive care treatment with fluids, rest and analgesia. - The patient may also use warm salt water gargles, throat lozenges and/or OTC throat spray as needed. - STREP A MOLECULAR (POC) 2. URI, acute - ICD9: 465.9, ICD10: J06.9 - Discussed viral etiology and rationale for treatment. - Symptomatic treatment with prn analgesia - Supportive care with fluids and rest - The patient may also use OTC cough and cold meds as needed. - COVID AND INFLUENZA A/B AND RSV PCR, ROUTINE KAYLEEN Spencer Differential Diagnoses - Viral pharyngitis is more likely for the following reason(s): suggested by HANDP - Viral URI is more likely for the following reason(s): suggested by HANDP - Strep pharyngitis is less likely for the following reason(s): laboratory studies not suggestive Disposition The patient was discharged. OTC Medications were advised: Cough/cold medication as needed Procedures [facility] 07-23-2024 History of Presen t illness Narrative [facility] Subjective Lin Acevedo is a 19 year old female. Patient presents with: Nasal Congestion: drainage, cough, headache x 1 week HPI 19-year-old female presents for cough, congestion, headache, sore throat x 4 to 5 days. Patient states she has been sick for the past couple of days. She has a dry cough, nasal congestion, sore throat. No fevers. Has had some chills. She denies any chest pain or shortness of breath. Her family is sick currently as well. She has not taken anything for symptoms. No other complaint PAST MEDICAL HISTORY Diagnosis Date Depression/anxiety Menstrual cycle disorder 01/2018 ?ovarian cyst NEGATIVE MEDICAL HISTORY 06/23/2017 Normal Color Vision PAST SURGICAL HISTORY Procedure Laterality Date NONE ALLERGIES Patient has no known allergies. MEDICATIONS 25-IRON [id number] ORAL Take by mouth. (Patient not taking: Reported on 07/23/2024) FAMILY HISTORY Problem Relation Age of Onset other (mva) Mother Factor 5 Leiden Father No Known Problems Brother Hypertension Maternal Grandmother Diabetes Maternal Grandfather sugar issues not diabetes yet. Factor 5 Leiden Paternal Grandmother Hypertension Paternal Grandmother No Known Problems Paternal Grandfather Social History Tobacco Use Smoking status: Former Current packs/day: 0.00 Types: Cigarettes Quit date: 07/15/2023 Years since quittin.0 Smokeless tobacco: Never Tobacco comments: vape intermittently Vaping Use Vaping status: Never Used Substance Use Topics Alcohol use: Not Currently Comment: rarely Drug use: Not Currently Types: Marijuana Comment: No use since 12/15/2023 Review of Systems Constitutional: Positive for chills. Negative for fever. HENT: Positive for congestion and sore throat. Negative for ear pain. Respiratory: Positive for cough. Negative for shortness of breath. Cardiovascular: Negative for chest pain. Gastrointestinal: Negative for diarrhea and vomiting. Objective BP 124/72 Pulse 94 Temp 36.1 C (96.9 F) Resp 16 Wt 78 kg (171 lb 15.3 oz) LMP 06/11/2023 (Exact Date) SpO2 98% Physical Exam Vitals and nursing note reviewed. Constitutional: General: She is not in acute distress. Appearance: Normal appearance. She is not toxic-appearing. HENT: Right Ear: Tympanic membrane and ear canal normal. Left Ear: Tympanic membrane and ear canal normal. Nose: Congestion present. Mouth/Throat: Mouth: Mucous membranes are moist. Pharynx: Uvula midline. Posterior oropharyngeal erythema present. Tonsils: 2+ on the right. 2+ on the left. Eyes: Conjunctiva/sclera: Conjunctivae normal. Cardiovascular: Rate and Rhythm: Normal rate and regular rhythm. Pulmonary: Effort: Pulmonary effort is normal. Breath sounds: Normal breath sounds. No wheezing, rhonchi or rales. Skin: General: Skin is warm and dry. Neurological: Mental Status: She is alert. ASSESSMENT/PLAN: 1. Sore throat - ICD9: 462, ICD10: J02.9 (primary diagnosis) - suspect viral - Group A strep molecular testing negative - Discussed supportive care treatment with fluids, rest and analgesia. - The patient may also use warm salt water gargles, throat lozenges and/or OTC throat spray as needed. - STREP A MOLECULAR (POC) 2. URI, acute - ICD9: 465.9, ICD10: J06.9 - Discussed viral etiology and rationale for treatment. - Symptomatic treatment with prn analgesia - Supportive care with fluids and rest - The patient may also use OTC cough and cold meds as needed. - COVID & INFLUENZA A/B & RSV PCR, ROUTINE KAYLEEN Spencer Differential Diagnoses - Viral pharyngitis is more likely for the following reason(s): suggested by H&P - Viral URI is more likely for the following reason(s): suggested by H&P - Strep pharyngitis is less likely for the following reason(s): laboratory studies not suggestive Disposition The patient was discharged. OTC Medications were advised: Cough/cold medication as needed Procedures documented in this encounter [facility] 03-19-2024 Note HNO ID: [id number] Author: MARIA DOLORES ASCENCIO RN Service: ? Author Type: Registered Nurse Type: Progress Notes Filed: 03/19/2024 13:07 Note Text: Patient delivered via at [facility] on 03/16/24 per Lorena Bassett CNM. See OB Outcome note. Maria Dolores Ascencio RN [facility] 03-19-2024 History of Presen t illness Narrative Patient delivered via at [facility] on 03/16/24 per Lorena Bassett CNM. See OB Outcome note. Maria Dolores Ascencio RN documented in this encounter [facility] 03-12-2024 Progress note Formatting of t his note might be different from the original. SW- Occasional ctx's. No vb, lof. Good FM PE: Gen- NAD, well appearing Abd- Soft, gravid, NT See flowsheet A/p 39 wk gestation - Discussed r/b/a IOL and consent signed. Discussed process of induction. Patient desires induction of labor 39-40 weeks given mild polyhydramnios. Her and her partner would like to check his work schedule prior to scheduling. Will message or call in today Dave Pyle DO [facility] 03-12-2024 Miscellaneous Notes SW- Occasional ctx's. No vb, lof. Good FM PE: Gen- NAD, well appearing Abd- Soft, gravid, NT See flowsheet A/p 39 wk gestation - Discussed r/b/a IOL and consent signed. Discussed process of induction. Patient desires induction of labor 39-40 weeks given mild polyhydramnios. Her and her partner would like to check his work schedule prior to scheduling. Will message or call in today Dave Pyle DO documented in this encounter [facility] 03-12-2024 Instructions Trudy Garcia MA - 03/12/2024 8:23 AM EDT SEQUENTIAL SCREENINGS The [facility] offers sequential screenings for women who are interested in screenings for chromosomal abnormalities and certain defects during a . The sequential screen combines ultrasound and blood tests to determine the risk of chromosomal abnormalities, including Down's Syndrome (Trisomy 21) and Trisomy 18, as well as open neural tube defects including spina bifida. Ultrasound examination is performed between 11 weeks and 13 weeks gestational age. Blood tests are drawn after the ultrasound and again later in the between 15 and 21 weeks gestational age. Please let your physician know if you are interested in this testing. It will require an appointment with our autobody technician. This is not an ultrasound performed by a physician in our office during a routine visit. SIGNS AND SYMPTOMS OF LABOR 1. Contractions every 10 minutes or more often 2. Clear, pink, or brownish fluid (water) leaking from vagina 3. Feeling that baby is pushing down, pressure 4. Low, dull backache 5. Cramps that feel like a period 6. Cramps with or without diarrhea If you notice any of the above symptoms, contact our office at [phone] and ask to speak with a nurse. After hours, you can call doctors registry at [phone] OR call [facility] at [phone] and ask to have the doctor corrections sergeant paged. If you consider this an emergency, dial or go to your nearest emergency department. NEED HELP? Are you dealing with a violent or abusive relationship? Are you a victim of rape or sexual assult? Call [facility] ([place]) 24 hour Crisis Hotline: 716.252.6989 or 717-496-0912. MANUAL Your Guide to a Healthy manual is now on-line. Visit [email or web address] to download your free copy documented in this encounter [facility] 03-09-2024 Telephone encounter Note Patient called and appointment rescheduled for 03/12. Maria Dolores Ascencio RN [facility] 03-09-2024 Miscellaneous Notes Patient called and appointment rescheduled for 03/12. Maria Dolores Ascencio RN Left message for patient to call office to offer appointment. She rescheduled for 03/16 and she was last seen 02/19. SW has openings on Tuesday, 03/12. Whitney Bingham RN Please reach out to patient as she missed her appointment today and is currently 38.6 weeks gestation. Day You APRN.CNM documented in this encounter [facility] 03-09-2024 Telephone encounter Note Left message for patient to call office to offer appointment. She rescheduled for 03/16 and she was last seen 02/19. SW has openings on Tuesday, 03/12. Whitney Bingham, RN [facility] 03-09-2024 Telephone encounter Note Please reach out to patient as she missed her appointment today and is currently 38.6 weeks gestation. Day You APRN.CNM [facility] Work Phone: 03-08-2024 Note HNO ID: [id number] Author: TRUDY SMITH MA Service: ? Author Type: Commutator Inspector Type: Progress Notes Filed: 03/08/2024 09:31 Note Text: POPULATION HEALTH NAVIGATION OUTREACH Action/ 2nd attempt: Called and left message to call back. Reason for Outreach Medicaid OB/Peds Care Gaps due: N/A Patient Contacted: Unable or unnecessary to reach patient: Unable to reach patient Left message Navigation Signature: Trudy Wilder MA March 08, 2024 9:30 AM [facility] 03-06-2024 Note HNO ID: [id number] Author: TRUDY SMITH MA Service: ? Author Type: Commutator Inspector Type: Progress Notes Filed: 03/06/2024 12:51 Note Text: POPULATION HEALTH NAVIGATION OUTREACH Action/ 1st attempt: Called and left message to call back to discuss fishing manager. MC message sent. Reason for Outreach Medicaid OB/Peds Care Gaps due: N/A Patient Contacted: Unable or unnecessary to reach patient: Unable to reach patient Left message MyChart message sent Navigation Signature: Trudy Wilder MA March 06, 2024 12:50 PM [facility] 03-06-2024 History of Presen t illness Narrative POPULATION HEALTH NAVIGATION OUTREACH Action/ 1st attempt: Called and left message to call back to discuss fishing manager. MC message sent. Reason for Outreach Medicaid OB/Peds Care Gaps due: N/A Patient Contacted: Unable or unnecessary to reach patient: Unable to reach patient Left message MyChart message sent Navigation Signature: Trudy Wilder MA March 06, 2024 12:50 PM documented in this encounter [facility] 03-06-2024 Note Patient Outreach (BREANNA SARABIAAV) LIN ACEVEDO ([id number]) 5 F Date Time Provider Department 03/06/24 TRUDY SMITH During your visit today, we recorded the following information about you: Trudy Smith MA 03/06/2024 12:51 PM Signed POPULATION HEALTH NAVIGATION OUTREACH Action/ 1st attempt: Called and left message to call back to discuss fishing manager. message sent. Reason for Outreach Medicaid OB/Peds Care Gaps due: N/A Patient Contacted: Unable or unnecessary to reach patient: Unable to reach patient Left message [employer] message sent Navigation Signature: Trudy Wilder MA March 06, 2024 12:50 PM Trudy Smith MA 03/08/2024 9:31 AM Signed POPULATION HEALTH NAVIGATION OUTREACH Action/ 2nd attempt: Called and left message to call back. Reason for Outreach Medicaid OB/Peds Care Gaps due: N/A Patient Contacted: Unable or unnecessary to reach patient: Unable to reach patient Left message Navigation Signature: Trudy Wilder MA March 08, 2024 9:30 AM Allergies As of Date: 03/06/2024 (No Known Allergies) Date Reviewed: 02/20/2024 Reviewed by: Davian Umaña MA - Fully Assessed Reason for Visit: Population Health Navigation Outreach [3910] Cmt: OB/peds Prescriptions as of 03/08/2024 - 25-IRON [id number] ORAL Take by mouth. Problem List As Of Date 03/06/2024 Noted Resolved Depressive disorder [F32.A] 04/02/2021 with care elsewhere in third*01/19/2024 Encounter for supervision of high risk pregnanc*01/19/2024 Polyhydramnios in third trimester [O40.3XX0] 01/27/2024 Encounter Status:Closed by TRUDY SMITH on 03/06/24 [facility] 02-24-2024 Note Indication Evaluation of growth Transfer of care Impression REMOTE READ - Single, live, intrauterine . - The biometry is consistent with the assigned gestational dating. - The EFW is 2808 g, at the 32%. AC is at the 68%. - The amniotic fluid volume is mild polyhydramnios with an MVP of 7.4 cm and an NOEL of 26.5 cm. - The placenta is anterior, fundal. - No malformations visualized on a limited survey as detailed below. Ultrasound Consultation Mild polyhydramnios was identified. Polyhydramnios is typically defined by an amniotic fluid index > 24 cm or a MVP > 8 cm. The leading diagnosis for increased fluid in the third trimester is idiopathic (i.e. normal variant). The differential diagnosis also includes maternal conditions such as diabetes mellitus or insulin resistance. Rare causes include hydrops, absence of swallowing which can be secondary to neurologic conditions or GI obstruction such as esophageal atresia or duodenal atresia. There is no evidence of any structural abnormalities on ultrasound. With any ultrasound there is potential for non-visualized malformations. Recommendations Additional follow-up as clinically indicated. Maternal Assessment Height 157 cm Height (ft) 5 ft Height (in) 2 in Maternal assessment other: 1 Para 0 Method Transabdominal ultrasound examination. View: Suboptimal view: limited by position Martin . Number of fetuses: 1 Dating GA by prior assessment 36 w + 6 d ANNABEL by prior assessment: 03/17/2024 Ultrasound examination on: 02/24/2024 GA by U/S based upon: AC, BPD, Femur, HC GA by U/S 35 w + 3 d ANNABEL by U/S: 03/27/2024 Assigned: based on stated ANNABEL, selected on 02/24/2024 Assigned GA 36 w + 6 d Assigned ANNABEL: 03/17/2024 General Evaluation Cardiac activity present. FHR 126 bpm. movements: present. Presentation: cephalic Placenta: Placental site: anterior, fundal Umbilical cord: Cord vessels: 3 vessel cord Amniotic fluid: Amount of AF: mild polyhydramnios. MVP 7.4 cm. NOEL 26.5 cm. Q1 6.2 cm, Q2 6.4 cm, Q3 6.5 cm, Q4 7.4 cm Growth Overview Exam date GA BPD (mm) HC (mm) AC (mm) FL (mm) HL (mm) EFW (g) 01/27/2024 32w 6d 83.9 71% 297.6 33% 292.1 61% 60.6 24% 53.8 20% 2014 34% 02/24/2024 36w 6d 89 40% 314 15% 331.2 68% 67.1 19% 2808 32% Biometry Standard BPD 89.0 mm 36w 0d 40% Hadlock OFD 106.6 mm 31w 6d 6% Nicolaides HC 314.0 mm 34w 2d 15% Lux AC 331.2 mm 37w 0d 68% Hadlock Femur 67.1 mm 34w 1d 19% Lux EFW 2,808 g 36w 0d 32% Hadlock EFW (lb) 6 lb EFW (oz) 3 oz EFW by: Hadlock (HC-AC-FL) Extremities / Bony Struc FL / HC 0.21 Other Structures FHR 126 bpm Anatomy Lateral ventricles: suboptimal Cavum septi pellucidi: suboptimal Cerebellum: suboptimal Cisterna magna: suboptimal 4-chamber view: normal RVOT view: normal LVOT view: normal 3-vessel view: normal Heart / Thorax Situs: situs solitus (normal) Diaphragm: normal Stomach: normal Kidneys: normal Bladder: normal sex: female Wants to know sex: yes Performed By: Maria Dolores Power RDMS, RVT Read By: Alana Rose M.D. [facility] 02-20-2024 Progress note Formatting of t his note might be different from the original. DM-Pt doing well. Denies vaginal Bleeding, Leaking fluid, or regular Contractions. Pt reports good movement Physical Exam: Gen: female in no apparent distress Abd: soft, Gravid. Non tender to palpation. See flow sheet Assessment & Plan Encounter for supervision of high risk in third trimester, antepartum Polyhydramnios in third trimester complication, single or unspecified fetus MIILD POLY with care elsewhere in third trimester Limited care in third trimester 36 weeks gestation of Orders: URINE OB DIP B/O ROUTINE, GROUP B STREP PCR - has Growth us scheduled this week - GBS today - Kick counts and Labor reviewed - declines Flu vaccine Rossana Benrard MD [facility] 02-20-2024 Miscellaneous Notes DM-Pt doing well. Denies vaginal Bleeding, Leaking fluid, or regular Contractions. Pt reports good movement Physical Exam: Gen: female in no apparent distress Abd: soft, Gravid. Non tender to palpation. See flow sheet Assessment & Plan Encounter for supervision of high risk in third trimester, antepartum Polyhydramnios in third trimester complication, single or unspecified fetus MIILD POLY with care elsewhere in third trimester Limited care in third trimester 36 weeks gestation of Orders: URINE OB DIP B/O ROUTINE, GROUP B STREP PCR - has Growth us scheduled this week - GBS today - Kick counts and Labor reviewed - declines Flu vaccine Rossana Bernard MD documented in this encounter [facility] 02-20-2024 Instructions Davian Umaña MA - 02/20/2024 2:33 PM EDT SEQUENTIAL SCREENINGS The [facility] offers sequential screenings for women who are interested in screenings for chromosomal abnormalities and certain defects during a . The sequential screen combines ultrasound and blood tests to determine the risk of chromosomal abnormalities, including Down's Syndrome (Trisomy 21) and Trisomy 18, as well as open neural tube defects including spina bifida. Ultrasound examination is performed between 11 weeks and 13 weeks gestational age. Blood tests are drawn after the ultrasound and again later in the between 15 and 21 weeks gestational age. Please let your physician know if you are interested in this testing. It will require an appointment with our autobody technician. This is not an ultrasound performed by a physician in our office during a routine visit. SIGNS AND SYMPTOMS OF LABOR 1. Contractions every 10 minutes or more often 2. Clear, pink, or brownish fluid (water) leaking from vagina 3. Feeling that baby is pushing down, pressure 4. Low, dull backache 5. Cramps that feel like a period 6. Cramps with or without diarrhea If you notice any of the above symptoms, contact our office at [phone] and ask to speak with a nurse. After hours, you can call doctors registry at [phone] OR call [facility] at [phone] and ask to have the doctor corrections sergeant paged. If you consider this an emergency, dial 9--5 or go to your nearest emergency department. NEED HELP? Are you dealing with a violent or abusive relationship? Are you a victim of rape or sexual assult? Call [facility] ([place]) 24 hour Crisis Hotline: 990.427.4680 or 775-205-3236. MANUAL Your Guide to a Healthy manual is now on-line. Visit [email or web address] to download your free copy documented in this encounter [facility] 02-15-2024 Progress note Formatting of t his note might be different from the original. S: Lin Acevedo is a 18 year old female who presents at 03/17/2024, by Last Menstrual Period for a routine visit. Denies headache, visual changes, chest pain, shortness of breath, vaginal bleeding, leakage of fluid, or dysuria. Feeling well, no complaints. Good movement, No contractions O: See flow sheet Gen: No apparent distress Abd: Gravid, nontender RSV vaccine today LARC declined ASSESSMENT/PLAN: 1. 35 weeks gestation of - ICD9: V22.2, ICD10: Z3A.35 (primary diagnosis) - URINE OB DIP B/O 2. Polyhydramnios in third trimester complication, single or unspecified fetus - ICD9: 657.03, ICD10: O40.3XX0 - URINE OB DIP B/O 3. Encounter for supervision of high risk in third trimester, antepartum - ICD9: V23.9, ICD10: O09.93 - URINE OB DIP B/O 4. with care elsewhere in third trimester - ICD9: V22.1, ICD10: Z34.93 - URINE OB DIP B/O 5. Need for vaccination - ICD9: V05.9, ICD10: Z23 - RSV VACCINE, BIVALENT (ABRYSVO) Whitney Dejesus MD [facility] 02-15-2024 Miscellaneous Notes S: Lin Acevedo is a 18 year old female who presents at 03/17/2024, by Last Menstrual Period for a routine visit. Denies headache, visual changes, chest pain, shortness of breath, vaginal bleeding, leakage of fluid, or dysuria. Feeling well, no complaints. Good movement, No contractions O: See flow sheet Gen: No apparent distress Abd: Gravid, nontender RSV vaccine today LARC declined ASSESSMENT/PLAN: 1. 35 weeks gestation of - ICD9: V22.2, ICD10: Z3A.35 (primary diagnosis) - URINE OB DIP B/O 2. Polyhydramnios in third trimester complication, single or unspecified fetus - ICD9: 657.03, ICD10: O40.3XX0 - URINE OB DIP B/O 3. Encounter for supervision of high risk in third trimester, antepartum - ICD9: V23.9, ICD10: O09.93 - URINE OB DIP B/O 4. with care elsewhere in third trimester - ICD9: V22.1, ICD10: Z34.93 - URINE OB DIP B/O 5. Need for vaccination - ICD9: V05.9, ICD10: Z23 - RSV VACCINE, BIVALENT (ABRYSVO) Whitney Dejesus MD documented in this encounter [facility] 02-15-2024 Instructions Trudy Garcia MA - 02/15/2024 3:41 PM EDT SEQUENTIAL SCREENINGS [facility] offers sequential screenings for women who are interested in screenings for chromosomal abnormalities and certain defects during a . The sequential screen combines ultrasound and blood tests to determine the risk of chromosomal abnormalities, including Down's Syndrome (Trisomy 21) and Trisomy 18, as well as open neural tube defects including spina bifida. Ultrasound examination is performed between 11 weeks and 13 weeks gestational age. Blood tests are drawn after the ultrasound and again later in the between 15 and 21 weeks gestational age. Please let your physician know if you are interested in this testing. It will require an appointment with our autobody technician. This is not an ultrasound performed by a physician in our office during a routine visit. SIGNS AND SYMPTOMS OF LABOR 1. Contractions every 10 minutes or more often 2. Clear, pink, or brownish fluid (water) leaking from vagina 3. Feeling that baby is pushing down, pressure 4. Low, dull backache 5. Cramps that feel like a period 6. Cramps with or without diarrhea If you notice any of the above symptoms, contact our office at [phone] and ask to speak with a nurse. After hours, you can call doctors registry at [phone] OR call [facility] at [phone] and ask to have the doctor corrections sergeant paged. If you consider this an emergency, dial 9-1-3 or go to your nearest emergency department. NEED HELP? Are you dealing with a violent or abusive relationship? Are you a victim of rape or sexual assult? Call [facility] ([place]) 24 hour Crisis Hotline: 506.328.6614 or 690-635-6872. MANUAL Your Guide to a Healthy manual is now on-line. Visit [email or web address] to download your free copy documented in this encounter [facility] 02-01-2024 Note HNO ID: [id number] Author: DAVIAN UMAÑA MA Service: ? Author Type: Commutator Inspector Type: Progress Notes Filed: 02/01/2024 10:55 Note Text: Patient identified by name and date of . Lin Acevedo presents today for a vaccination of Tdap. Patient denies an allergy to latex: yes Patient denies a severe (life-threatening) allergy to a previous dose of Tdap, DTP, DTaP, DT or Td vaccine. Yes Patient denies history of epilepsy or neurological problems: Yes Patient is afebrile and denies being moderately or severely ill: Yes Patient denies history of Guillain-Newcastle Syndrome (a severe paralytic illness): Yes Tdap Adacel injection was given without incident. See immunizations for details of immunizations administered today. VIS sheet provided: Yes Provider Satnam was present in office at time of injection. Davian Umaña MA [facility] 02-01-2024 History of Presen t illness Narrative Patient identified by name and date of . Lin Acevedo presents today for a vaccination of Tdap. Patient denies an allergy to latex: yes Patient denies a severe (life-threatening) allergy to a previous dose of Tdap, DTP, DTaP, DT or Td vaccine. Yes Patient denies history of epilepsy or neurological problems: Yes Patient is afebrile and denies being moderately or severely ill: Yes Patient denies history of Guillain-Newcastle Syndrome (a severe paralytic illness): Yes Tdap Adacel injection was given without incident. See immunizations for details of immunizations administered today. VIS sheet provided: Yes Provider Satnam was present in office at time of injection. Davian Umaña MA documented in this encounter [facility] 02-01-2024 Progress note Formatting of t his note might be different from the original. DM-Pt doing well. Transfer of Care- from [place]. Pt had growth us 01/27/24 [facility]- and GCT testing prior to that Pt has not had ultrasound since 13 weeks. Denies vaginal Bleeding, Leaking fluid, or regular Contractions. Pt reports good movement Physical Exam: Gen: female in no apparent distress Abd: soft, Gravid. Non tender to palpation. See flow sheet @ 33.4 weeks Assessment & Plan Encounter for supervision of high risk in third trimester, antepartum Polyhydramnios in third trimester complication, single or unspecified fetus -MILD poly reviewed with patient. - Growth us in 4 weeks - GCT wnl with care elsewhere in third trimester Limited care in third trimester 33 weeks gestation of Discussed contraception- wants time to think about it and will need to sign LARC form next visit - wants to Get RSV VACCINE NEXT VISIT - Flu vaccine discussed will consider - reviewed records that were received, will fax to L&D, No ultrasound received, pt reports 13 week ultrasound was c/w LMP. LMP 06/11 (not 2/3 per patient) LMP and 33 week ultrasound are consistent. Need for vaccination Orders: TDAP VACCINE, AGE 7+ YR (ADACEL, BOOSTRIX) Rossana Bernard MD [facility] 02-01-2024 Miscellaneous Notes DM-Pt doing well. Transfer of Care- from [place]. Pt had growth us 01/27/24 [facility]- and GCT testing prior to that Pt has not had ultrasound since 13 weeks. Denies vaginal Bleeding, Leaking fluid, or regular Contractions. Pt reports good movement Physical Exam: Gen: female in no apparent distress Abd: soft, Gravid. Non tender to palpation. See flow sheet @ 33.4 weeks Assessment & Plan Encounter for supervision of high risk in third trimester, antepartum Polyhydramnios in third trimester complication, single or unspecified fetus -MILD poly reviewed with patient. - Growth us in 4 weeks - GCT wnl with care elsewhere in third trimester Limited care in third trimester 33 weeks gestation of Discussed contraception- wants time to think about it and will need to sign LARC form next visit - wants to Get RSV VACCINE NEXT VISIT - Flu vaccine discussed will consider - reviewed records that were received, will fax to L&D, No ultrasound received, pt reports 13 week ultrasound was c/w LMP. LMP 06/11 (not 2/3 per patient) LMP and 33 week ultrasound are consistent. Need for vaccination Orders: TDAP VACCINE, AGE 7+ YR (ADACEL, BOOSTRIX) Rossana Bernard MD documented in this encounter [facility] 02-01-2024 Instructions Davian Umaña MA - 02/01/2024 10:06 AM EDT SEQUENTIAL SCREENINGS [facility] offers sequential screenings for women who are interested in screenings for chromosomal abnormalities and certain defects during a . The sequential screen combines ultrasound and blood tests to determine the risk of chromosomal abnormalities, including Down's Syndrome (Trisomy 21) and Trisomy 18, as well as open neural tube defects including spina bifida. Ultrasound examination is performed between 11 weeks and 13 weeks gestational age. Blood tests are drawn after the ultrasound and again later in the between 15 and 21 weeks gestational age. Please let your physician know if you are interested in this testing. It will require an appointment with our autobody technician. This is not an ultrasound performed by a physician in our office during a routine visit. SIGNS AND SYMPTOMS OF LABOR 1. Contractions every 10 minutes or more often 2. Clear, pink, or brownish fluid (water) leaking from vagina 3. Feeling that baby is pushing down, pressure 4. Low, dull backache 5. Cramps that feel like a period 6. Cramps with or without diarrhea If you notice any of the above symptoms, contact our office at [phone] and ask to speak with a nurse. After hours, you can call doctors registry at [phone] OR call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 Positive for Frequency and Missed Period; Negative for Dysuria, Urgency or Hematuria Test: Positive Sexually: Positive for Active P: 0 Ab: 0 Narrative Narrative: Patient is an 18-year-old woman who is sexually active. The did have an ultrasound within the past week that showed a single live intrauterine . She has not seen a utility worker driver. She denies orthostatic symptoms. She had some cramping. She had maybe some spotting. She took a shower and had passage of a clot. Clot was a sizable long finger. She states the cramping hasimproved. She does not know her blood type. She denies history of STI. She does have remote history of ovarian cyst. She denies history of endometriosis. She has no other complaints. Prior similar symptoms: No Recent Illness/Hospitalization: No PFSH PFSH Medical History Depression Allergy/AdvReac Type Severity Reaction Status Date / Time No Known Allergies Allergy Verified 09/17/23 15:50 Social History Smoking Status: Never smoker ROS ROS ED Constitutional Constitutional ED: Denies chills, fever(s) or subjective Cardiovascular Cardiovascular: Denies chest pain or palpitations Respiratory/Chest Respiratory/Chest: Denies cough, dyspnea or dyspnea on exertion Gastrointestinal Gastrointestinal: Denies abdominal pain, nausea or vomiting Genitourinary Genitourinary ED: Reports urinary frequency; Denies dysuria or hematuria Integumentary Denies rash Neurologic Neurologic: Denies headache(s) Psychiatric Psychiatric: Reports anxiety Hematologic/Lymphatic Hematologic/Lymphatic: Denies easy bleeding or easy bruising EXAM Physical Exam Const Vital Signs: 09/17/23 15:50 09/17/23 17:49 Temperature 97.0 F L Temperature Source Temporal Pulse Rate 90 77 Respiratory Rate 16 16 Blood Pressure 123/91 H 128/86 H Blood Pressure Mean 101 100 Pulse Ox 99 98 Oxygen Delivery Method Room Air Room Air Positive well nourished and well developed General Appearance ED: well developed and NAD; Negative for odor of alcohol detected or pallor HEENT Reports moist mucous membranes HEENT Narrative: Head is atraumatic and normocephalic. Eyes PERRL and EOMs intact bilaterally General Eye ED: Negative for pale conjunctiva or scleral icterus Neck no lymphadenopathy, supple and no JVD Resp normal respiratory effort and clear to auscultation bilaterally Cardio regular rate, regular rhythm, S1 normal heart sound, no murmurs and no JVD GI normal to inspection, nondistended, normoactive bowel sounds, soft to palpation,non-tender, non-distended and no masses Auscultation: normoactive bowel sounds Narrative: External genitalia normal. There is old blood in the vaginal vault. The external os appears open. Bimanual exam reveals uterus to be 14 weeks size. Nurse was unable to appreciate heart tones. The external os is open to fingertip. Internal os is closed. Transabdominal ultrasound reveals a single live intrauterine . heart tones were noted. Estimated heart rate 1 40-1 50. Skull, torso and lowerextremities were visualized as well. There is no evidence of a hematoma in the proximity of the placenta. Back/Spine no CVA tenderness Extremity normal to inspection and full ROM Neuro oriented x3 and CN's II-XII intact bilaterally Psych mental status grossly normal Skin no rashes or lesions noted and no wounds General Skin Exam: Negative for jaundice or pallor MDM MDM MDM Narrative Medical decision making narrative: Since patient does not know blood type ABO Rh was obtained. Patient has O+ blood. Transabdominal ultrasound was obtained and documented with the portion of theEMR. Patient was informed that she has a threatened miscarriage. She was informed pelvic rest. Differential diagnosis is vaginal bleeding due to trauma to the cervix or vagina. Versus threatened AB versus incomplete AB versus completed AB. Lab Data Attestation: I reviewed the patient's lab results. Labs: Laboratory Results - last 24 hr 09/17/23 17:05 Serum , Qual POSITIVE H Blood Type O POSITIVE Discharge Plan Triage Chief Complaint: Vag Bleeding ED Provider: Davy Cuellar Dx/Rx/DC Orders Clinical Impression: Miscarriage, threatened, early Instructions: Miscarriage Threatened Primary Care Provider: Hermelinda Bauman Referrals: Rossana Story MD [Med Staff - Active Staff] - 1-2 Weeks Hermelinda Bauman MD [Primary Care Provider] - Disposition Disposition: Home, Self Care What to do if you have Problems For any increased pain, shortness of breath, bleeding, nausea or vomiting, chestpain, or any unexpected problems, contact your Primary Care Provider. Call [facility] ([phone]) or report to the closest Emergency Room. Call 911 if necessary. 09/17/232001 <Electronically signed by Davy Cuellar MD> Cosigner Signature (if applicable): CC: Dr. Hermelinda Bauman MD ~ Signed [facility] Work Phone: 1(604) 496-465511-18-2021 NoteHNO ID: [id number] Author: Hermelinda Bauman MD Service: ? Author Type: Physician Type: Progress Notes Filed: 04/02/2021 5:00 PM Note Text: SUBJECTIVE: Lin Acevedo is an 15 year old female who presents for followup of of depression and anxiety treatment. She has been taking 10mg Lexapro for the past 2 months. Current symptoms include depressed mood and anxious feelings. She denies suicidal ideation or passive thoughts about . Symptoms have occurred daily. Her appetite is good. She states she is sleeping well. School is going well. Her PHQ-9 today is 5 which is an improvement from her last visit when it was 21. Patient is doing counseling with [facility] at school once a week. She had some manic type symptoms reported at the last visit but she thinks those are now under control. She is taking the hydroxyzine as needed and will use it about 4 times a week. Social History Tobacco Use - Smoking status: Never Smoker - Smokeless tobacco: Current User - Tobacco comment: vape intermittently Substance Use Topics - Alcohol use: No - Drug use: Not on file Negative except for as listed above OBJECTIVE: BP 110/60 Pulse 84 Temp 36.7 ?C (98 ?F) (Temporal Artery) Resp 20 Ht 157.5 cm (5' 2") Wt 68.5 kg (151 lb) LMP 02/23/2021 BMI 27.62 kg/m? EXAM: APPEARANCE Well appearing, alert, in no acute distress, well-hydrated, well nourished. PSYCH: Posture and motor behavior: normal posture and motor behavior Dress, grooming, personal hygiene: normal dress and grooming Facial expression: good eye contact Speech: normal speech Mood: euthymic Coherency and relevance of thought: normal thought processes Memory: normal memory ASSESSMENT/PLAN: Depression and Anxiety improved Per orders. Will increase Lexapro from 10 to 15mg daily. Psychotherapy recommended: Yes. Return visit in 1 month(s) for recheck since dose has changed. Patient Education: Reviewed concept of depression and anxiety as biochemical imbalance of neurotransmitters and rationale for treatment. Instructed patient to contact office or [id number] after-hours promptly should condition worsen or any new symptoms appear. Hermelinda Bauman [facility]09-23-2021 NoteHNO ID: [id number] Author: Hermelinda Bauman MD Service: ? Author Type: Physician Type: Progress Notes Filed: 02/06/2021 3:04 PM Note Text: SUBJECTIVE: Lin Acevedo is an 15 year old female who presents for initiation of of depression and anxiety treatment. Onset of recent symptoms approximately 2 year(s) ago, gradually worsening since that time. Within the past 2 weeks she is getting rapidly worsening feelings. Current symptoms include depressed mood, anxious feelings, anhedonia, weight loss, change in appetite, insomnia, psychomotor agitation, fatigue, feelings of worthlessness/guilt, difficulty concentrating, hopelessness and suicidal thoughts with specific plan. She has thought about shooting herself in the head (she doesn't have immediate access to guns but thinks she could find one) or getting hit by a car. She has not had a past attempt. There are times that she doesn't feel safe with herself but not all the time. Symptoms have occurred daily. Rates overall mood 2 on scale of 1-10. Past history of negative history of depression, anxiety, OCD, eating disorder or suicide attempts. Previous treatment modalities: ER visit, counseling. Depression risk factors: negative life event - school stress, peer problems, betrayed in a relationship, some stress at home (tries to go to grandmothers). Got into a verbal argument with father's girlfriend. Patient denies feeling unsafe in her house. Patient is having a lot of highs and lows. She has issues sleeping at night but is tired during the day. She is not enjoying things anymore. Her counselor is concerned that she is manic. Father thinks she is more sad than happy. Patient states the counselor thinks she is having manic episodes and may have Bipolar Disorder. Patient admits to having days at a time where she doesn't sleep, even with melatonin. There is a family history with Depression and Anxiety. Patient's cousin is Bipolar. The school had her get evaluated at the hospital last year. Patient was suicidal that day and was scared to be by herself. After this she was discharged from the ER but put in counseling. Patient has been going to her current counselor for a couple months. She was seeing another counselor for about a year. She goes to [employer] through the school. Social History Tobacco Use - Smoking status: Never Smoker - Smokeless tobacco: Current User - Tobacco comment: vape intermittently Substance Use Topics - Alcohol use: No - Drug use: Not on file Negative except for as listed above OBJECTIVE: BP 108/54 Pulse 68 Temp 36.8 ?C (98.2 ?F) (Temporal) Resp 16 Ht 151 cm (4' 11.45") Wt 71.7 kg (158 lb) LMP 12/28/2020 BMI 31.43 kg/m? PHQ-9 = 21 LUCY-7 = 15 EXAM: APPEARANCE Well appearing, alert, in no acute distress, well-hydrated, well nourished. PSYCH: Posture and motor behavior: normal posture and motor behavior Dress, grooming, personal hygiene: normal dress and grooming Facial expression: good eye contact Speech: normal speech Mood: euthymic Coherency and relevance of thought: normal thought processes Memory: normal memory ASSESSMENT/PLAN: Depressed mood with manic behaviors new diagnosis Per orders. Will refer to psychiatry for discussion of medications. Psychotherapy recommended: Yes. Continue counseling. Return visit in 1 month(s). Patient Education: Reviewed concept of mood disorders as biochemical imbalance of neurotransmitters and rationale for treatment. Instructed patient to contact office or [id number] after-hours promptly should condition worsen or any new symptoms appear. Hermelidna Bauman [facility]08-05-2021 NoteHNO ID: [id number] Author: Hermelinda Bauman MD Service: ? Author Type: Physician Type: Progress Notes Filed: 12/18/2020 3:41 PM Note Text: WELL VISIT PEDIATRIC FEMALE 14-17 YRS OLD SERVICE DATE: 12/18/2020 Lin is a 15 year old female who presents today for well exam accompanied by her father. SUBJECTIVE CONCERNS: right ear bubbling noise, not itchy or painful. Going on for 4 days. Can't fall asleep because of the sensation. May need drug screen for work, has to check if it will be done at work. HISTORY There is no problem list on file for this patient. PAST MEDICAL HISTORY Diagnosis Date - Menstrual cycle disorder 01/2018 - NEGATIVE MEDICAL HISTORY 06/23/2017 Normal Color Vision PAST SURGICAL HISTORY Procedure Laterality Date - NONE ALLERGIES No Known Allergies Medications: No prescriptions on file. History reviewed. No pertinent family history. Social History Social History Narrative Not on file Smoking Exposure: Does your child spend a significant amount of time in the care of anyone who smokes? Yes -Who uses tobacco products? self -Are you interesting in quitting? No School: Grade: 9th; grades C-D. Physical Activity: less than 1 hour of physical activity per day Screen Time totaling less than 2 hours of screen time per day. Safety: Reviewed seat belts, bike helmets and smoke detectors Diet: -Eats 1 meals per day and 3 snacks per day -Typical beverages include water -Fruits and vegetables are eaten as snacks -# of fast food meals/week: 0 -# of days/week that family has dinner together: 4 Elimination: no concerns, normal size and consistency Dental: dental care current Sleep: -cant fall asleep Gynecological history: LMP: 12/13/2020 Cycles are regular and last 5 days. Dysmenorrhea: severe Heavy periods: yes Substance use: vaping Sexual History: Attraction: both male and female Sexually Active: Yes Number of lifetime partners: 1 Contraception: none GC/C screen within the past year: No GC/C screen since most recent partner? No Change in normal vaginal discharge: No Body image: satisfactory Screening tools reviewed and discussed with patient/kapdxs-UYX-Z score 5 (recommended cut off score is 11), Social Determinants of Health and TB. Please see questionnaires and review flowsheets. REVIEW OF SYSTEMS GENERAL: No fevers EYES: No vision concerns ENT: No hearing concerns RESPIRATORY: Negative for cough, wheezing or respiratory distress CARDIOVASCULAR: Negative for chest pain, syncope, lightheadness or heart racing SKIN: Negative for lesions, rash, and itching ENDOCRINE: No growth concerns OBJECTIVE Physical Exam: BP 110/62 Pulse 80 Temp 36.6 ?C (97.9 ?F) (Temporal Artery) Resp 18 Ht 158.1 cm (5' 2.24") Wt 67.6 kg (149 lb 2 oz) LMP 12/13/2020 BMI 27.06 kg/m? Blood pressure percentiles are 59 % systolic and 38 % diastolic based on the 2017 AAP Clinical Practice Guideline. This reading is in the normal blood pressure range. 93 %ile (Z= 1.47) based on CDC (Girls, 2-20 Years) BMI-for-age based on BMI available as of 12/18/2020. Last BMI: Wt: 59.4 kg (131 lb) (84 %, Z= 0.99)* BMI: 27.13 kg/(m2) Last 4 Encounter Wt Readings: Date: Wt: 02/07/2019 59.4 kg (131 lb) (84 %, Z= 0.99)* 05/01/2018 52.9 kg (116 lb 9.6 oz) (77 %, Z= 0.74)* 06/23/2017 44 kg (97 lb) (61 %, Z= 0.28)* Last 4 Encounter Ht Readings: Date: Ht: 02/07/2019 148 cm (4' 10.27") (4 %, Z= -1.70)* 05/01/2018 147.3 cm (4' 10") (10 %, Z= -1.27)* 06/23/2017 147 cm (4' 9.87") (29 %, Z= -0.54)* General: Well developed, No acute distress Head: normocephalic Eyes: conjunctivae/corneas clear Ears: normal external ear and canal, tympanic membranes with normal landmarks Nose: no erythema or rhinorrhea Oropharynx: moist mucous membranes, no erythema or exudate Neck: Supple, no adenopathy Resp: lungs clear to auscultation Heart: RRR , Normal S1 and S2. , No murmurs Abdomen: Soft, nontender, nondistended, no palpable organomegaly or masses, normal bowel sounds Genitalia: deferred Extremities: No clubbing, cyanosis, or edema., No deformities or skin discoloration. Good capillary refill. Full range of motion. Neuro: No focal deficits or abnormal findings present Skin: no rashes, lesions or jaundice ASSESSMENT AND PLAN Encounter Diagnosis ICD-10-CM 1. Encounter for routine child health examination with abnormal findings Z00.121 2. Encounter for immunization Z23 HUMAN PAPILLOMAVIRUS 9-VALENT HPV IM 93 %ile (Z= 1.47) based on CDC (Girls, 2-20 Years) BMI-for-age based on BMI available as of 12/18/2020. Lin is overweight (BMI 85th% - 95th%): -Discussed how healthy eating, minimizing electronics and getting physical activity impact physical and emotional health -Avoid eating out and encouraged family meals at home Based on PHQ-A score and interview, presentation is consistent with possible depression: -patient is fol (more content not included)...[facility] noteNo assessment information availableWKindred [facility] Work Phone: Evaluation note* Diagnosis Insufficient care in third trimester- Primary documented in this encounter [facility] note* Diagnosis with care elsewhere in third trimester- Primary Encounter for supervision of high risk in third trimester, antepartum Family history of factor V Leiden mutation Family history of other blood disorders [facility] Diagnosis Encounter for anatomic survey- Primary Insufficient care in third trimester 32 weeks gestation of state, incidental [facility] Diagnosis Polyhydramnios in third trimester complication, single or unspecified fetus- Primary documented in this encounter [facility] note* Diagnosis Encounter for supervision of high risk in third trimester, antepartum- Primary Polyhydramnios in third trimester complication, single or unspecified fetus with care elsewhere in third trimester Limited care in third trimester 33 weeks gestation of state, incidental Need for vaccination Need for prophylactic vaccination and inoculation against unspecified single disease * Assessment & Plan Note - Rossana Felix MD - 02/01/2024 10:55 AM EDTAssociated Problem(s): Polyhydramnios in third trimester -MILD poly reviewed with patient. - Growth us in 4 weeks - GCT wnl * Assessment & Plan Note - Rossana Felix MD - 02/01/2024 10:38 AM EDTAssociated Problem(s): with care elsewhere in third trimester * Assessment & Plan Note - Rossana Felix MD - 02/01/2024 10:38 AM EDTAssociated Problem(s): Encounter for supervision of high risk in third trimester, antepartum documented in this encounter [facility] note* Diagnosis Encounter for supervision of high risk in third trimester, antepartum- Primary Polyhydramnios in third trimester complication, single or unspecified fetus with care elsewhere in third trimester Limited care in third trimester 33 weeks gestation of state, incidental Need for vaccination Need for prophylactic vaccination and inoculation against unspecified single disease 35 weeks gestation of - Primary state, incidental Polyhydramnios in third trimester complication, single or unspecified fetus Encounter for supervision of high risk in third trimester, antepartum with care elsewhere in third trimester Need for vaccination Need for prophylactic vaccination and inoculation against unspecified single disease documented in this encounter [facility] note* Diagnosis Encounter for supervision of high risk in third trimester, antepartum- Primary Polyhydramnios in third trimester complication, single or unspecified fetus with care elsewhere in third trimester Limited care in third trimester 33 weeks gestation of state, incidental Need for vaccination Need for prophylactic vaccination and inoculation against unspecified single disease Encounter for supervision of high risk in third trimester, antepartum- Primary Polyhydramnios in third trimester complication, single or unspecified fetus with care elsewhere in third trimester Limited care in third trimester 36 weeks gestation of state, incidental * Assessment & Plan Note - Rossana Felix MD - 02/20/2024 3:15 PM EDT Associated Problem(s): with care elsewhere in third trimester * Assessment & Plan Note - Rossana Felix MD - 02/20/2024 3:15 PM EDT Associated Problem(s): Encounter for supervision of high risk in third trimester, antepartum * Assessment & Plan Note - Rossana Felix MD - 02/20/2024 3:15 PM EDT Associated Problem(s): Polyhydramnios in third trimester MIILD POLY [facility] Diagnosis Encounter for supervision of high risk in third trimester, antepartum- Primary Polyhydramnios in third trimester complication, single or unspecified fetus with care elsewhere in third trimester Limited care in third trimester 33 weeks gestation of state, incidental Need for vaccination Need for prophylactic vaccination and inoculation against unspecified single disease Encounter for supervision of high risk in third trimester, antepartum- Primary Polyhydramnios in third trimester complication, single or unspecified fetus with care elsewhere in third trimester Limited care in third trimester 36 weeks gestation of state, incidental Encounter for ultrasound to check growth- Primary Encounter for routine screening for malformation using ultrasonics Polyhydramnios in third trimester complication, single or unspecified fetus 36 weeks gestation of state, incidental [facility] Diagnosis Encounter for supervision of high risk in third trimester, antepartum- Primary Polyhydramnios in third trimester complication, single or unspecified fetus with care elsewhere in third trimester Limited care in third trimester 33 weeks gestation of state, incidental Need for vaccination Need for prophylactic vaccination and inoculation against unspecified single disease Encounter for supervision of high risk in third trimester, antepartum- Primary Polyhydramnios in third trimester complication, single or unspecified fetus with care elsewhere in third trimester Limited care in third trimester 36 weeks gestation of state, incidental Encounter for supervision of high risk in third trimester, antepartum- Primary 39 weeks gestation of state, incidental Polyhydramnios in third trimester complication, single or unspecified fetus documented in this encounter [facility] note* Diagnosis Encounter for supervision of high risk in third trimester, antepartum- Primary Polyhydramnios in third trimester complication, single or unspecified fetus with care elsewhere in third trimester Limited care in third trimester 33 weeks gestation of state, incidental Need for vaccination Need for prophylactic vaccination and inoculation against unspecified single disease Encounter for supervision of high risk in third trimester, antepartum- Primary Polyhydramnios in third trimester complication, single or unspecified fetus with care elsewhere in third trimester Limited care in third trimester 36 weeks gestation of state, incidental Sore throat- Primary Acute pharyngitis URI, acute Acute upper respiratory infections of unspecified site documented in this encounter [facility] note* Diagnosis Encounter for supervision of high risk in third trimester, antepartum (HCC)- Primary Polyhydramnios in third trimester complication, single or unspecified fetus (HCC) with care elsewhere in third trimester (HCC) Limited care in third trimester (HCC) 33 weeks gestation of (HCC) state, incidental Need for vaccination Need for prophylactic vaccination and inoculation against unspecified single disease Encounter for supervision of high risk in third trimester, antepartum (HCC)- Primary Polyhydramnios in third trimester complication, single or unspecified fetus (HCC) with care elsewhere in third trimester (HCC) Limited care in third trimester (HCC) 36 weeks gestation of (HCC) state, incidental SOB (shortness of breath)- Primary Shortness of breath Bronchitis Bronchitis, not specified as acute or chronic SOB (shortness of breath) Shortness of breath [facility] Diagnosis Encounter for supervision of high risk in third trimester, antepartum (HCC)- Primary Polyhydramnios in third trimester complication, single or unspecified fetus (HCC) with care elsewhere in third trimester ([facility]) Limited care in third trimester ([facility]) 33 weeks gestation of ([facility]) state, incidental Need for vaccination Need for prophylactic vaccination and inoculation against unspecified single disease Encounter for supervision of high risk in third trimester, antepartum (HCC)- Primary Polyhydramnios in third trimester complication, single or unspecified fetus ([facility]) with care elsewhere in third trimester ([facility]) Limited care in third trimester ([facility]) 36 weeks gestation of ([facility]) state, incidental SOB (shortness of breath) Shortness of breath documented in this encounter [facility] for referral (narrative)* Diagnostic Procedure Only (Routine) - Authorized Specialty Diagnoses / Procedures Referred By Contac t Referred To Contact [facility] Diagnoses Insufficient care in third trimester Procedures OBSTETRIC ULTRASOUND WHI US PREG UTERUS AFTER 1ST TRIMEST GESTATION Rossana Felix MD [address] [place] [address] [address] Referral ID Status Reason Start Date Expiration Date Visits Requested Visits Authorized [id number] Authorized Auto-Generat ed Referral 01/19/2024 01/18/2025 1 1 [facility] for referral (narrative)* Diagnostic Procedure Only (Routine) - New Request Specialty Diagnoses / Procedures Referred By Contac t Referred To Contact [facility] Diagnoses Polyhydramnios in third trimester complication, single or unspecified fetus Procedures OBSTETRIC ULTRASOUND WHI US PREG UTERUS AFTER 1ST TRIMEST GESTATION Rossana Felix MD [address] [place] [address] [facility] [address] [place] [address] Referral ID Status Reason Start Date Expiration Date Visits Requested Visits Authorized [id number] New Request Auto-Generat ed Referral 01/27/2024 01/26/2025 1 1 [facility] Summary Purpose Family History No Family History Records FoundNo Family History Records FoundNo Family History Records Found Advance Directives No Advanced Directives Records Found Advance Directive Response Recorded Date/ Time Living Will No September 17, 2023 4: 55pm Power of Spare Person No September 17, 2023 4:55pm Chief Complaint and Reason for Visit Chief Complaint VAGINAL BLEEDING WIT H Reason for Referral Specialty Diagnoses / Procedures Referred By Christoph yao Referred To Contact [facility] Diagnoses Family history of factor V Leiden mutation Procedures 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 DATE CREATED AUTHOR AUTHOR'S ORGANIZ ATION 12/29/2024 [facility] Care Teams (unrecognized sec tion and content) Team Status: Active Member Role Status Dates Dr. Hermelinda Bauman MD Family Provider Active Dr. Hermelinda Bauman MD Primary Care Provider Active Team Status: Inactive Member Role Status Dates Dr. Hermelinda Bauman MD Primary Care Provider Active Dr. Davy Cuellar MD Emergency Provider Active Control Analyst Relationship Specialty Start Date End Date Hermelinda Bauman MD [address] [place] [address] PCP - General Pediatrics 06/16/18 Control Analyst Relationship Specialty Start Date End Date Hermleinda Bauman MD [address] [place] [address] PCP - General Pediatrics 06/16/18 Control Analyst Relationship Specialty Start Date End Date Hermelnida Bauman MD [address] [place] [address] PCP - General Pediatrics 06/16/18 Control Analyst Relationship Specialty Start Date End Date Hermelinda Bauman MD [address] [place] [address] PCP - General Pediatrics 06/16/18 Control Analyst Relationship Specialty Start Date End Date Hermelinda Bauman MD [address] [place] [address] PCP - General Pediatrics 06/16/18 Control Analyst Relationship Specialty Start Date End Date Hermelinda Bauman MD [address] [place] [address] PCP - General Pediatrics 06/16/18 Control Analyst Relationship Specialty Start Date End Date Hermelinda Bauman MD [address] [place] [address] PCP - General Pediatrics 06/16/18 Control Analyst Relationship Specialty Start Date End Date Hermelinda Bauman MD [address] [place] [address] PCP - General Pediatrics 06/16/18 Control Analyst Relationship Specialty Start Date End Date Hermelinda Bauman MD [address] [place], [place] [id number] PCP - General Pediatrics 06/16/18 Control Analyst Relationship Specialty Start Date End Date Hermelinda Bauman MD [address] [place], [place] [address] PCP - General Pediatrics 06/16/18 Control Analyst Relationship Specialty Start Date End Date Hermelinda Bauman MD [address] [place], [place] [address] PCP - General Pediatrics 06/16/18 Control Analyst Relationship Specialty Start Date End Date Hermelinda Bauman MD [address] [place], [place] [address] PCP - General Pediatrics 06/16/18 Control Analyst Relationship Specialty Start Date End Date Hermelinda Bauman MD [address] [place], [place] [id number] PCP - General Pediatrics 06/16/18 Goals (unrecognized section and content) Goals may be documented in a n alternate section Source Comments (unrecognize d section and content) In the event this informatio n is protected by the Federal Confidentiality of Alcohol and Drug Abuse Patient Records regulations: The Federal rules restrict any use of the information to criminally investigate or prosecute any alcohol or drug abuse patient.[facility] the event this information is protected by the Federal Confidentiality of Alcohol and Drug Abuse Patient Records regulations: The Federal rules restrict any use of the information to criminally investigate or prosecute any alcohol or drug abuse patient.[facility] the event this information is protected by the Federal Confidentiality of Alcohol and Drug Abuse Patient Records regulations: The Federal rules restrict any use of the information to criminally investigate or prosecute any alcohol or drug abuse patient.[facility] the event this information is protected by the Federal Confidentiality of Alcohol and Drug Abuse Patient Records regulations: The Federal rules restrict any use of the information to criminally investigate or prosecute any alcohol or drug abuse patient.[facility] the event this information is protected by the Federal Confidentiality of Alcohol and Drug Abuse Patient Records regulations: The Federal rules restrict any use of the information to criminally investigate or prosecute any alcohol or drug abuse patient.[facility] the event this information is protected by the Federal Confidentiality of Alcohol and Drug Abuse Patient Records regulations: The Federal rules restrict any use of the information to criminally investigate or prosecute any alcohol or drug abuse patient.[facility] Center[facility] the event this information is protected by the Federal Confidentiality of Alcohol and Drug Abuse Patient Records regulations: The Federal rules restrict any use of the information to criminally investigate or prosecute any alcohol or drug abuse patient.[facility] Center[facility] the event this information is protected by the Federal Confidentiality of Alcohol and Drug Abuse Patient Records regulations: The Federal rules restrict any use of the information to criminally investigate or prosecute any alcohol or drug abuse patient.[facility] Center[facility] the event this information is protected by the Federal Confidentiality of Alcohol and Drug Abuse Patient Records regulations: The Federal rules restrict any use of the information to criminally investigate or prosecute any alcohol or drug abuse patient.[facility] Center[facility] the event this information is protected by the Federal Confidentiality of Alcohol and Drug Abuse Patient Records regulations: The Federal rules restrict any use of the information to criminally investigate or prosecute any alcohol or drug abuse patient.[facility] Center[facility] the event this information is protected by the Federal Confidentiality of Alcohol and Drug Abuse Patient Records regulations: The Federal rules restrict any use of the information to criminally investigate or prosecute any alcohol or drug abuse patient.[facility] Center[facility] the event this information is protected by the Federal Confidentiality of Alcohol and Drug Abuse Patient Records regulations: The Federal rules restrict any use of the information to criminally investigate or prosecute any alcohol or drug abuse patient.[facility] Center[facility] the event this information is protected by the Federal Confidentiality of Alcohol and Drug Abuse Patient Records regulations: The Federal rules restrict any use of the information to criminally investigate or prosecute any alcohol or drug abuse patient.[facility] Center[facility] the event this information is protected by the Federal Confidentiality of Alcohol and Drug Abuse Patient Records regulations: The Federal rules restrict any use of the information to criminally investigate or prosecute any alcohol or drug abuse patient.[facility] Center[facility] the event this information is protected by the Federal Confidentiality of Alcohol and Drug Abuse Patient Records regulations: The Federal rules restrict any use of the information to criminally investigate or prosecute any alcohol or drug abuse patient.[facility] Center[facility] the event this information is protected by the Federal Confidentiality of Alcohol and Drug Abuse Patient Records regulations: The Federal rules restrict any use of the information to criminally investigate or prosecute any alcohol or drug abuse patient.[facility] Center[facility] the event this information is protected by the Federal Confidentiality of Alcohol and Drug Abuse Patient Records regulations: The Federal rules restrict any use of the information to criminally investigate or prosecute any alcohol or drug abuse patient.[facility] CenterIn the event this information is protected by the Federal Confidentiality of Alcohol and Drug Abuse Patient Records regulations: The Federal rules restrict any use of the information to criminally investigate or prosecute any alcohol or drug abuse patient.[facility] CenterIn the event this information is protected by the Federal Confidentiality of Alcohol and Drug Abuse Patient Records regulations: The Federal rules restrict any use of the information to criminally investigate or prosecute any alcohol or drug abuse patient.[facility] Center[facility] the event this information is protected by the Federal Confidentiality of Alcohol and Drug Abuse Patient Records regulations: The Federal rules restrict any use of the information to criminally investigate or prosecute any alcohol or drug abuse patient.[facility] Reason for Visit (unrecogniz ed section and content) Reason Comments Appointment Reason Comments Reason Comments Initial OB Visit Reason Comments PRAF Reason Comments US Specialty Diagnoses / Procedures Referred By Contac t [facility] Diagnoses Insufficient care in third trimester Procedures OBSTETRIC ULTRASOUND WHI US PREG UTERUS AFTER 1ST TRIMEST GESTATION Rossana Felix MD [address] [place] [address] [address] Referral ID Status Reason Start Date Expiration Date V isits Requested Visits Authorized [id number] Closed Auto-Generate d Referral 01/19/2024 01/18/2025 1 1 Reason Comments Results Reason Comments Results Reason Onset Date Comments Care 02/01/2024 Reason Onset Date Comments Care 02/15/2024 Reason Onset Date Comments Care 02/20/2024 Specialty Diagnoses / Procedures Referred By Contac t Referred To Contact [facility] Diagnoses Polyhydramnios in third trimester complication, single or unspecified fetus Procedures OBSTETRIC ULTRASOUND WHI US PREG UTERUS AFTER 1ST TRIMEST GESTATION Rossana Felix MD [address] [place] [address] [address] Referral ID Status Reason Start Date Expiration Date V isits Requested Visits Authorized [id number] Closed Auto-Generate d Referral 01/27/2024 01/26/2025 1 1 Reason Onset Date Comments Population Health Navigation Outreach 03/06/2024 OB/peds Reason Onset Date Comments Care 03/12/2024 Reason Comments Ob Delivery Note Reason Comments Nasal Congestion drainage, cough, hea dache x 1 week Reason Onset Date Comments Results 07/24/2024 Reason Comments Cough Chest congestion, Sh ortness of Breath, wheezing x2 days FOR RECORDS PERTAINING TO PATIENTS WHO ARE OR HAVE BEEN ENROLLED IN A CHEMICAL DEPENDENCY/SUBSTANCEABUSE PROGRAM, SOME INFORMATION MAY BE OMITTED. This clinical summary was aggregated from multiple sources. Caution should be exercised in using it in the provision of clinical care. This summary normalizes information from multiple sources, and as a consequence, information in this document may materially change the coding, format and clinical context of patient data. In addition, data may be omitted in some cases. CLINICAL DECISIONS SHOULD BE BASED ON THE PRIMARY CLINICAL RECORDS. [facility] [employer] [facility]. provides no warranty or guarantee of the accuracy or completeness of information in this document.
== END | disposition home or self-care (01) ==
LOC: MTRAD 13:22
PROVIDERS: PCP Pediatrics; Referring Provider Physician Assistant Surgical; Visit Provider Physician Assistant Surgical
DX: R05.9 Cough, unspecified (principal)
CPT/HCPCS: 71046